=== PATIENT | male | born 1940 | race Two or more races ===

== ENCOUNTER 2016-07-12 20:50 | Inpatient (IN) | payer MEDICARE, OTHER ==
[~2016-07-12] VITALS: Ht 182.9 cm; Wt 76.9 kg
[~2016-07-12 20:50] MED LIST: /PROC25SU PR; /TAMS4CA OR; ACET50TA PO; DOCU10ELUD PO; DOXA2TAB PO; DOXY100C PO; FERR325T3 PO; FOLI1TAB2 PO; FOLI1TAB86 PO; K-PHTAB2 PO; KPHOS50TA OR; MAG-400T7 PO; MEGA40SU PO; MEGE400SUS PO; METO12TA PO; METO25TA74 PO; MOM30SS PO; NEPHTAB PO; OMEP40CA2 PO; ONDA4TAB6 PO; OXYB10TA PO; PRIL40CA PO; REME15TA PO; RENATAB5 PO; SENN8.6T76 PO; SLOW FE PO; SLOW45TA PO; TYLE325T5 PO; VITA50003 PO; ZIAC2.5T PO; [UNRECOGNIZED DRUG - CODE] PO
[2016-07-12 21:35] LABS: BASO % 0.1 % (0.0-1.0); EOS % 0.3 % (0.0-3.0); LARGE UNSTAINED CELL # 0.1 K/mm3 (0.0-0.4); LARGE UNSTAINED CELL % 0.9 % (0.0-4.0); LYMPH # 0.6 K/mm3 (1.5-4.5); LYMPH % 3.6 % (24.0-44.0); MEAN CORPUSCULAR HEMOGLOBIN 33.3 pg (27.0-33.0); MEAN CORPUSCULAR HGB CONC 33.5 g/dl (32.0-36.5); MEAN CORPUSCULAR VOLUME 99.5 fl (80.0-96.0); MONO # 0.2 K/mm3 (0.0-0.8); MONO % 1.5 % (0.0-5.0); NEUTROPHILS # 15.1 K/mm3 (1.8-7.7); NEUTROPHILS % 93.6 % (36.0-66.0); PLATELET COUNT, AUTOMATED 258 k/mm3 (150-450); RED CELL DISTRIBUTION WIDTH 14.1 % (11.5-14.5); WHITE BLOOD COUNT 16.1 K/mm3 (4.0-10.0)
[2016-07-12 21:55] LABS: CALCIUM LEVEL 6.5 MG/DL (8.8-10.2); CREATININE FOR GFR 2.19 MG/DL (0.70-1.30); GLOMERULAR FILTRATION RATE 31.1 (>42); POTASSIUM SERUM 3.7 MEQ/L (3.5-5.1)
[2016-07-12] MEDS ORDERED: POTA50TAB PO (22:39)
[2016-07-12] MEDS ORDERED: PRED5TA PO (22:43)
[2016-07-12] MEDS ORDERED: LUPR45IN IM (22:43)
[2016-07-12] MEDS ORDERED: ZYTI250T PO (22:43)
--- NOTE | 2016-07-12 23:30 | REPUSA ---
CLINICAL HISTORY: Shortness of breath. TECHNIQUE: CT chest without contrast. COMPARISON: No pertinent prior studies are available at this time. CT CHEST WITHOUT CONTRAST: Lungs: There are bilateral dependent consolidations, right lower lobe greater than left. Some of thes e consolidations demonstrate groundglass nodules There is a moderate right pleural effusion. Heart: Normal size. No significant effusion. Aorta: Normal caliber. Mediastinum and vic: No significant lymphadenopathy. Bony thorax: There is calcification of the anterior longitudinal ligament of the spine consistent wit h ankylosing spondylitis. Limited upper abdomen: Cholelithiasis. IMPRESSION: Bilateral dependent consolidations with moderate right pleural effusion. Consider aspirat ion type pneumonia.
[2016-07-13] VITALS (7 sets, daily range): BP systolic 100–141; BP diastolic 56–66
[2016-07-13 00:22] LABS: ABG BASE EXCESS -8.6 (-2.0-2.0); ABG HCO3 13.5 MEQ/L (22.0-26.0); ABG PARTIAL PRESSURE CO2 20.1 mmHg (35.0-45.0); ABG PARTIAL PRESSURE O2 73.1 mmHg (75.0-100.0); ABG STANDARD HCO3 17.5 MEQ/L (22.0-26.0); ABG TOTAL CO2 14.1 MEQ/L (23.0-31.0); ABG pH (ARTERIAL) 7.445 UNITS (7.350-7.450)
--- NOTE | 2016-07-13 00:25 | EDDOCDS ---
Nurse's Notes [facility] Name: Regan Mata Age: 76 yrs Sex: Male : 1940 Arrival Date: 07/12/2016 Time: 20:50 Bed 8 Private MD: Dalton Saez MD Diagnosis: Shortness of breath;Hypokalemia;Hypocalcemia Presentation: 07/12 20:55 Presenting complaint: EMS states: patient has had difficulty breathing past couple of nn1 days. Patient went to [facility],transferred for UTI, sacral ulcer, and hypokalema/hypocalcemia. Breathing has improved. Suicide/Homicide risk assessment- the patient denies having any suicidal and/or homicidal ideations and does not present with any other emotional, behavioral or mental health complaints. Status: Patient is not a retail service representative or dependent. Transition of care: patient was received from [facility]. 20:55 Acuity: LIANE Level 3 nn1 20:55 Method Of Arrival: Ambulance nn1 20:55 Adult Sepsis Screening: The patient does not have new or worsening altered mentation. nn1 Patient's respiratory rate is less than 22. Systolic blood pressure is greater than 100. Patient has a qSOFA score of 0- Negative Sepsis Screen. Triage Assessment: 21:15 General: Appears in no apparent distress, Behavior is appropriate for age. Pain: nn1 Location: buttocks Pain currently is 7 out of 10 on a pain scale. The patient is triaged at the bedside. See Assessment in Nurses Notes section of ED record. Neurological: Level of Consciousness is awake, alert, obeys commands, Oriented to person, place, time. Respiratory: Airway is patent Respiratory effort is even, unlabored, Respiratory pattern is regular, Breath sounds are clear Reports shortness of breath for a couple of days, denies SOB at this time. GI: Abdomen is non- distended Last BM was July 12, 2016. at 21:17. other Patient has suprapubic catheter, catheter insertion site appears infected. Dried secretions noted around site. Bowel sounds present X 4 quads. : Suprapubic catheter in place Urine is Urine is dark, odor is foul. Derm: Skin is dusky. Derm: Decubitus located on sacrum approximately > 20 cm is stage I other Nonblanchable area throughout sacrum with areas of open skin, no drainage in those areas. Historical: - Allergies: No known drug Allergies; - Home Meds: 1. ferrous sulfate 325 mg (65 mg iron) Oral cpER daily 2. folic acid 1 mg Oral tab 1 tab once daily 3. V-Apbh-Wkpguvr Oral 1 tab daily 4. Lupron Depot (6 Month) 45 mg intramuscular sykt every 6 months 5. metoprolol succinate 25 mg Tb24 1 tab once daily 6. omeprazole 40 mg Oral cpDR 1 cap once daily 7. oxybutynin chloride 10 mg Oral cp24 1 tab once daily 8. prednisone 5 mg Oral tab 1 tab 2 times per day 9. Genny-Edi 0.8 mg oral tab daily 10. Vitamin D Oral daily 11. 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 No barriers to communication noted, The patient speaks fluent Jordanian, Speaks appropriately for age. - Family history: No immediate family members are acutely ill. - : The pt / caregiver states he / she is not on anticoagulants. Home medication list is obtained from [facility] records/ . - Exposure Risk Screening:: None identified. Screenin:52 Infection Control. sew 21:01 Screening information is obtained from family members. Fall risk: At risk due to gait nn1 disturbance, uses cane for ambulation . Assistance ADL's: Requires assistance with meal preparation, this assistance is provided by family members, bathing, assistance is provided by family members, dressing, assistance is provided by family members, toileting, assistance is provided by family members, ambulation, assistance is provided by family members, housework, assistance is provided by family members, medication administration, assistance is provided by family members. Abuse/DV Screen: The patient / caregiver reports he/she is: not in a situation that causes fear, pain or injury. Nutritional screening: No deficits noted. Advance Directives: Currently, there is a health care proxy, Kirsty Mata, . home support is adequate. Assessment: 21:20 General: See triage assessment. . nn1 22:00 General: Appears in no apparent distress, comfortable, Behavior is appropriate for age, nn1 cooperative. Neurological: Level of Consciousness is awake, alert. Respiratory: Airway is patent Respiratory effort is even, unlabored, Respiratory pattern is regular, symmetrical. Derm: Skin is dusky. 23:19 General: Appears to be sleeping. Behavior is quiet. nn1 23:58 General: Patient given water, patient has no other complaints at this time. . Pain: nn1 Location: buttocks Pain currently is 7 out of 10 on a pain scale. Neurological: Level of Consciousness is awake, alert, Oriented to person, place, time. Respiratory: No deficits noted. Airway is patent Respiratory effort is even, unlabored, Respiratory pattern is regular, symmetrical. Derm: Skin is dusky. Vital Signs: 21:16 Resp 16; Temp 97.3; Pulse Ox 93% 3 lpm ; ajs 21:30 BP 116 / 55 RA; Pulse 100; Resp 20 S; Pulse Ox 94% on 2 lpm NC; af2 01 00:02 BP 127 / 58; Pulse 94; Resp 18; Temp 99.3(TE); Pulse Ox 96% on 3 lpm NC; Pain 7/10; nn1 Vitals: 07/12 20:55 Log In Time N/A - ambulance arrival. nn1 ED Course: 20:51 Patient visited by Annette Vences. sew 20:51 Patient moved to 8 sew 20:52 Dalton Saez is Private Physician. sew 20:58 Triage Initiated nn1 21:06 Dillan Williamson MD is Attending Physician. br1 21:13 Patient visited by Dillan Williamson MD. br1 21:15 Pt greeted and oriented to ED. Patient advised of names of staff involved in care, ajs location of call goel, wait times and NPO status. Accompanied by Family Member, Patient has correct armband on for positive identification. Placed in gown. Bed in low position. Call light in reach. Side rails up X2. Cleaned of incontinence. pipe cleaning machine operator on. Pulse ox on. NIBP on. 21:16 Patient visited by Mercedes Johnson. ajs 21:30 Troponin Sent. af2 21:30 BMP Sent. af2 21:30 CBC with Diff Sent. af2 21:31 Patient visited by Jeanine Richardson RN. af2 21:31 Inserted saline lock: 20 gauge in right antecubital area and blood collected. The af2 patient tolerated the procedure well. 21:43 -Influenza A&B Rapid Antigen - Nose Sent. nn1 21:43 -Blood Culture Sent. nn1 21:50 Mayra Aragon is Hospitalizing Provider. br1 22:08 Patient visited by Julienne Clark, Judo Teacher. jlm 22:08 EKG done. (by ED staff). Reviewed by Dillan Williamson MD. jlm 22:28 Barbi Rodrigues liquid yeast supervisor. ys2 22:47 [facility] Payment Agreement was scanned into [employer] and attached to record. jpb 23:32 CT Chest Without Contrast Returned. EDMS 07/13 00:01 The patient / caregiver is instructed regarding the plan of care and ED course. nn1 00:01 No procedures done that require assistance. nn1 Order Results: Lab Order: CBC with Diff; SPEC'M 07/12/16 21:27 Test: WHITE BLOOD COUNT; Value: 16.1; Range: 4.0-10.0; Abnormal: Above high normal; Units: K/mm3; Status: F Test: RED BLOOD COUNT; Value: 3.51; Range: 4.30-6.10; Abnormal: Below low normal; Units: M/mm3; Status: F Test: HEMOGLOBIN; Value: 11.7; Range: 14.0-18.0; Abnormal: Below low normal; Units: g/dl; Status: F Test: HEMATOCRIT; Value: 34.9; Range: 42.0-52.0; Abnormal: Below low normal; Units: %; Status: F Test: MEAN CORPUSCULAR VOLUME; Value: 99.5; Range: 80.0-96.0; Abnormal: Above high normal; Units: fl; Status: F Test: MEAN CORPUSCULAR HEMOGLOBIN; Value: 33.3; Range: 27.0-33.0; Abnormal: Above high normal; Units: pg; Status: F Test: MEAN CORPUSCULAR HGB CONC; Value: 33.5; Range: 32.0-36.5; Units: g/dl; Status: F Test: RED CELL DISTRIBUTION WIDTH; Value: 14.1; Range: 11.5-14.5; Units: %; Status: F Test: PLATELET COUNT, AUTOMATED; Value: 258; Range: 150-450; Units: k/mm3; Status: F Test: NEUTROPHILS %; Value: 93.6; Range: 36.0-66.0; Abnormal: Above high normal; Units: %; Status: F Test: LYMPH %; Value: 3.6; Range: 24.0-44.0; Abnormal: Below low normal; Units: %; Status: F Test: MONO %; Value: 1.5; Range: 0.0-5.0; Units: %; Status: F Test: EOS %; Value: 0.3; Range: 0.0-3.0; Units: %; Status: F Test: BASO %; Value: 0.1; Range: 0.0-1.0; Units: %; Status: F Test: LARGE UNSTAINED CELL %; Value: 0.9; Range: 0.0-4.0; Units: %; Status: F Test: NEUTROPHILS #; Value: 15.1; Range: 1.8-7.7; Abnormal: Above high normal; Units: K/mm3; Status: F Test: LYMPH #; Value: 0.6; Range: 1.5-4.5; Abnormal: Below low normal; Units: K/mm3; Status: F Test: MONO #; Value: 0.2; Range: 0.0-0.8; Units: K/mm3; Status: F Test: EOS #; Value: 0.0; Range: 0.0-0.50; Units: K/mm3; Status: F Test: BASO #; Value: 0.0; Range: 0.0-0.2; Units: K/mm3; Status: F Test: LARGE UNSTAINED CELL #; Value: 0.1; Range: 0.0-0.4; Units: K/mm3; Status: F Lab Order: [facility]; SPEC'M 07/12/16 21:27 Test: GLUCOSE, FASTING; Value: 91; Range: 83-110; Units: MG/DL; Status: F Test: BLOOD UREA NITROGEN; Value: 36; Range: 7-18; Abnormal: Above high normal; Units: MG/DL; Status: F Test: CREATININE FOR GFR; Value: 2.19; Range: 0.70-1.30; Abnormal: Above high normal; Units: MG/DL; Status: F Test: GLOMERULAR FILTRATION RATE; Value: 31.1; Range: >42; Abnormal: Below low normal; Status: F Test: SODIUM LEVEL; Value: 145; Range: 136-145; Units: MEQ/L; Status: F Test: POTASSIUM SERUM; Value: 3.7; Range: 3.5-5.1; Units: MEQ/L; Status: F Test: CHLORIDE LEVEL; Value: 114; Range: 98-107; Abnormal: Above high normal; Units: MEQ/L; Status: F Test: CARBON DIOXIDE LEVEL; Value: 16; Range: 21-32; Abnormal: Below low normal; Units: MEQ/L; Status: F Test: ANION GAP; Value: 15; Range: 8-16; Units: MEQ/L; Status: F Test: CALCIUM LEVEL; Value: 6.5; Range: 8.8-10.2; Abnormal: Below low normal; Units: MG/DL; Status: F Test Note: ; Units are mL/min/1.73 m2 Chronic Kidney Disease Staging per NKF: Stage I & II GFR >=60 Normal to Mildly Decreased Stage III GFR 30-59 Moderately Decreased Stage IV GFR 15-29 Severely Decreased Stage V GFR <15 Very Little GFR Left ESRD GFR <15 on CASTING ROOM OPERATOR Lab Order: Troponin; SPEC'M 07/12/16 21:27 Test: TROPONIN I; Value: 0.12; Range: < 0.10; Abnormal: Above high normal; Units: NG/ML; Status: F Test Note: ; Troponin I Reference Interval for Siemens NGRAIN LOCI: 99th Percentile= 0.00-0.045 ng/ml Risk Stratification: <= 0.10 ng/ml Decreased Risk for Adverse Clinical Events. 0.10-1.50 ng/ml Increased Risk for Adverse Clinical Events. Evaluation of additional criterion and/or repeat testing in 2-6 hours is suggested to rule out myocardial damage. >= 1.50 ng/ml Indicative of Myocardial Injury. Lab Order: -Influenza A&B Rapid Antigen - Nose; SPEC'M 07/12/16 21:39 Test: INFLUENZA A RAPID SCR by ICA; Value: INFLUENZA A RESULTS NEGATIVE; Status: F Test: INFLUENZA A RAPID SCR by ICA; Value: Comments:; Status: F Test: INFLUENZA B RAPID SCR by ICA; Value: INFLUENZA B RESULTS NEGATIVE; Status: F Test Note: ; The Influenza test is a direct rapid immunoassay for the qualitative detection of Influenza viral antigen. Cell culture (Viral Culture) testing should be considered to confirm NEGATIVE results and to assist in detecting other viruses that can provide similar clinical symptoms. Please contact the lab within 24 hours ([phone]) if confirmatory testing is desired. Lab Order: BNP; SPEC'M 07/12/16 21:27 Test: BRAIN NATRIURETIC PEPTIDE; Value: 201; Range: <100; Abnormal: Above high normal; Units: PG/ML; Status: F Lab Order: C REACTIVE PROTEIN QUANTITATIV; SPEC'M 07/12/16 21:27 Test: C REACTIVE PROTEIN QUANTITATIV; Value: 28.90; Range: 0.00-0.30; Abnormal: Above high normal; Units: MG/DL; Status: F Radiology Order: CT Chest Without Contrast Test: CT Chest Without Contrast REASON FOR EXAMINATION: Shortness of Breath; ; CLINICAL HISTORY: Shortness of breath.; TECHNIQUE: CT chest without contrast.; ; COMPARISON: No pertinent prior studies are available at this time.; ; CT CHEST WITHOUT CONTRAST:; Lungs: There are bilateral dependent consolidations, right lower lobe greater than left. Some of thes; e consolidations demonstrate groundglass nodules There is a moderate right pleural effusion.; Heart: Normal size. No significant effusion.; Aorta: Normal caliber.; Mediastinum and vic: No significant lymphadenopathy.; Bony thorax: There is calcification of the anterior longitudinal ligament of the spine consistent wit; h ankylosing spondylitis.; Limited upper abdomen: Cholelithiasis.; IMPRESSION: Bilateral dependent consolidations with moderate right pleural effusion. Consider aspirat; ion type pneumonia.; ; Outcome: 07/12 21:50 Decision to Hospitalize by Provider. br1 07/13 00:00 Discharge Assessment: Patient awake, alert and oriented x 3. No cognitive and/or nn1 functional deficits noted. Patient verbalized understanding of disposition instructions. patient administered narcotics - no. The following High Risk Discharge criteria are identified: None. Admitted to PCU accompanied by nurse, accompanied by tech, family with patient, via stretcher, with oxygen, on monitor, with chart. Condition: stable. No special radiology studies were completed. Property :Personal belongings accompany Pt. 00:01 Admission hand-off: Report Faxed Fax receipt verified by JANEEN Guillory . nn1 00:24 Patient left the ED. nn1 Signatures: Dispatcher [employer] EDMS Dillan Williamson MD MD br1 Mercedes Johnson Joel jpb Wallace, Julienne Morel, Judo Teacher Unit Jeanine Becker RN RN af2 Mana Bone RN RN nn1 Barbi Rodrigues ys2 MTDD
--- NOTE | 2016-07-13 00:25 | EDDOCDS ---
Physician Documentation [facility] Name: Regan Mata Age: 76 yrs Sex: Male : 1940 Arrival Date: 07/12/2016 Time: 20:50 Bed 8 Private MD: Dalton Saez MD Disposition: 07/12/16 21:50 Hospitalization ordered by Mayra Aragon for Inpatient Admission. Preliminary diagnosis are Shortness of breath, Hypokalemia, Hypocalcemia. - Bed requested for PCU. - Status is Inpatient Admission. nn1 - Condition is Stable. - Problem is new. - Symptoms are unchanged. Historical: - Allergies: No known drug Allergies; - Home Meds: 1. ferrous sulfate 325 mg (65 mg iron) Oral cpER daily 2. folic acid 1 mg Oral tab 1 tab once daily 3. W-Tfnm-Xaajgje Oral 1 tab daily 4. Lupron Depot (6 Month) 45 mg intramuscular sykt every 6 months 5. metoprolol succinate 25 mg Tb24 1 tab once daily 6. omeprazole 40 mg Oral cpDR 1 cap once daily 7. oxybutynin chloride 10 mg Oral cp24 1 tab once daily 8. prednisone 5 mg Oral tab 1 tab 2 times per day 9. Genny-Edi 0.8 mg oral tab daily 10. Vitamin D Oral daily 11. 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 No barriers to communication noted, The patient speaks fluent Bahraini, Speaks appropriately for age. - Family history: No immediate family members are acutely ill. - : The pt / caregiver states he / she is not on anticoagulants. Home medication list is obtained from [facility] records/ . - Exposure Risk Screening:: None identified. Vital Signs: 07/12 21:16 Resp 16; Temp 97.3; Pulse Ox 93% 3 lpm ; ajs 21:30 BP 116 / 55 RA; Pulse 100; Resp 20 S; Pulse Ox 94% on 2 lpm NC; af2 07/13 00:02 BP 127 / 58; Pulse 94; Resp 18; Temp 99.3(TE); Pulse Ox 96% on 3 lpm NC; Pain 7/10; nn1 MDM: 07/12 21:14 IV Saline Lock ordered. br1 21:14 Crankshaft Grinder/Pulse Ox/q 30 min VS ordered. br1 21:15 CBC with Diff Ordered. EDMS 21:15 BMP Ordered. EDMS 21:21 Oxygen at 2L/min via NC ordered. br1 21:21 Troponin Ordered. EDMS 21:21 ECG WITH READING ER PHYS+CARDIAG ordered. EDMS 21:25 Vital Signs ordered. br1 21:25 BED REQUEST+ADM ordered. EDMS 21:26 -Blood Culture (Adults Only), peripheral from different site, or from device/port/PICC br1 etc. if present ordered. 21:27 -Blood Culture (Adults Only), peripheral from different site, or from device/port/PICC sew etc. if present complete. 21:27 -Blood Culture Ordered. EDMS 21:28 CT Chest Without Contrast Ordered. EDMS 21:29 BLOOD CULTURES Ordered. EDMS 21:32 -Influenza A&B Rapid Antigen - Nose Ordered. EDMS 21:38 BNP Ordered. EDMS 22:39 CBC with Diff Reviewed. br1 22:39 BMP Reviewed. br1 22:39 Troponin Reviewed. br1 22:39 BNP Reviewed. br1 22:39 -Influenza A&B Rapid Antigen - Nose Reviewed. br1 22:44 Admission / Observation Status ordered. EDMS 22:44 2 GRAM SODIUM DIET ordered. EDMS 22:45 COMPLETE BLOOD COUNT Ordered. EDMS 22:45 BASIC METABOLIC PROFILE Ordered. EDMS 22:45 SPUTUM CULTURE AND GRAM STAIN Ordered. EDMS 22:46 Financial registration complete. jpb 22:47 [facility] was scanned into [employer] and attached to record. jpb 22:59 LACTIC ACID LEVEL, LACTATE Ordered. EDMS 22:59 PSA FREE (INCLUDES TOTAL) Ordered. EDMS 23:01 URINALYSIS Ordered. EDMS 23:01 URINE CULTURE Ordered. EDMS 23:18 ARTERIAL BLOOD GAS Ordered. EDMS 23:29 CARDIAC MARKER PANEL Ordered. EDMS 23:29 C REACTIVE PROTEIN QUANTITATIV Ordered. EDMS 07/13 00:07 MRSA SCREEN Ordered. EDMS Signatures: Dispatcher [employer] EDMS Jackelin GAMINO, JANEEN Zhang RN Dillan Quiñonez MD MD br1 BanazekChele Sarah sew Nunez, Nikkole,RN RN nn1 The chart was reviewed and I authenticate all verbal orders and agree with the evaluation and treatment provided.Corrections: (The following items were deleted from the chart) 07/12 21:21 21:20 Oxygen 2L via NC, titrate to maintain PO >95% ordered. br1 br1 23:27 22:45 CARDIAC MARKER PANEL ordered. EDMS EDMS 23:29 22:45 C REACTIVE PROTEIN QUANTITATIV ordered. EDMS EDMS 23:29 22:59 C REACTIVE PROTEIN QUANTITATIV ordered. EDMS EDMS Attachments: 22:47 [facility] Payment Agreement gunjan MTDD
--- NOTE | 2016-07-13 00:32 | PHACANCOPD ---
PHARMACY VANCOMYCIN DOSING Pt Demographics Demographics Patient Age:76 , Weight: , Gender: male Adjusted Body Weight Date: 07/13/16, Adjusted Body Weight: [78.7] Kg Events Past 24 Hours Events Past 24 Hours: NO: Change in CrCl, Dialysis, Diuretic Therapy, Elevation in WBC, Fever, Other, Pending Diagnostics, Pending Procedures Vancomycin Vancomycin Target Ranges: 15-20 mcg/ml Vancomycin Load Y/N: Yes Load Dose Date Time Vancomycin Load Dose: 1500MG Date: 07-13 Time: 0200 Vancomycin Dose Date: 07/13/16. Current Vancomycin Dose: [1000MG Q24H] Intermittent Dosing?: No Labs Labs Item Value Date Time White Blood Count 16.1 K/mm3 H 07/12/162126 Creatinine 2.19 MG/DL H 07/12/162126 Blood Urea Nitrogen 36 MG/DL H 07/12/162126 Micro Microbiology 07/12/16 Blood Culture, Received Pending 07/12/16 Influenza Virus Type A Antigen - Final, Complete 07/12/16 Influenza Virus Type B Antigen - Final, Complete Creatinine Clearance Date:07/13/16. Creatinine Clearance: [30.5]. Pending Labs Trough - @0100 Assessment and Plan Maintaining Current Dose?: Yes Reason for dose change: No Dose Change Pharmacist Note Pharmacist Note Date: 07/13/16. Pharmacist note:Dosed at 100mg q24h with a trough scheduled for 1 @0100. Will continue to monitor and make adjustments as needed. BHARGAV CORTES [facility] Jul 13, 2016 00:32
[2016-07-13] MEDS: NS 1,000 ML IV SCH ×3 (00:49→21:27)
[2016-07-13] MEDS ORDERED: VANCOMYCIN HCL 500 MG in D5W MINI-BAG PLUS 100 ML IV ONE (01:00)
[2016-07-13] MEDS: VANCOMYCIN HCL 1,000 MG, VIAL MATE ADAPTER 1 EACH in D5W 250 ML IV SCH (01:59)
[2016-07-13] MEDS: oxyBUTYnin *DITROPAN XL* 5 MG TABCR PO SCH ×2 (01:59→21:26)
--- NOTE | 2016-07-13 02:42 | HPE ---
DATE OF ADMISSION: 07/12/2016 HISTORY OF PRESENT ILLNESS: The patient is a 76-year-old male with past medical history significant for metastatic prostate cancer, gastroesophageal reflux disease (GERD), and hypertension, who was transferred from [facility] to [facility] on 07/12/2016, for respiratory distress. Patient stated that he started having worsening shortness of breath over the past few days. Patient initially went to [facility] for examination. Patient was found to be hypotensive, and patient was found to have elevated white count. Patient was given IV fluids and IV antibiotics, and patient requested transfer to [facility] for upper level of care. For the past few days, the patient started having worsening shortness of breath, started having fever and chills, and also started having a cough. However, he stated the sputum is more like a milky type of color. Patient also complained of worsening of the pain in the buttocks where he has frequent decubitus ulcers. He denies any other associated symptoms. Patient did have a history of prostate cancer with metastasis previously. Patient had radiation therapy in the past. For the past 3-4 months, the patient started seeing Dr. Garvin and patient has been taking Zytiga; however, patient's prostate-specific antigen (PSA) continued to rise. Patient is scheduled to have a positron emission tomography (PET) scan done again on 07/26/2016. Previously, patient was told he has metastasis to the left rib and the right femur. He was told that the Zytiga is not working as well as expected. The plan may be to start the patient on conventional prostate cancer therapy. When the patient arrived to [facility], the patient received IV fluids and also electrolytes supplements and also IV antibiotics. When patient arrived to our emergency room, patient had a blood pressure of 116/55, pulse was 100, respiratory rate 20, temperature 97.3. Patient's oxygen saturation was 94% with two liters nasal cannula. Patient had worsening respiratory distress in [facility] where he required increased nasal cannula up to five liters to maintain oxygen saturation. Patient was hospitalized in [facility] in September 2015. During that admission, the patient had an episode of atrial fibrillation and converted back after metoprolol. ALLERGIES: No known drug allergies. HOME MEDICATIONS: - Zytiga 1000 mg by mouth daily - vitamin D 50,000 units by mouth weekly - ferrous sulfate 325 mg by mouth daily - folic acid 1 mg by mouth daily - Lupron 45 mg IM every six months, last dose was in May 2016 - metoprolol succinate 25 mg by mouth at bedtime - omeprazole 40 mg by mouth at bedtime - oxybutynin 10 mg by mouth at bedtime - potassium phosphate 500 mg by mouth daily - prednisone 5 mg by mouth twice a day - multivitamin one tab by mouth daily PAST MEDICAL HISTORY: 1. Metastatic prostate cancer with bone metastasis. 2. Gastroesophageal reflux disease. 3. Hypertension. 4. History of suprapubic catheter use. SOCIAL HISTORY: Denies alcohol use. Denies smoking. Denies recreational drug use. Patient has DO NOT RESUSCITATE (DNR)/DO NOT INTUBATE (DNI). Medical orders for life-sustaining treatment (MOLST) form is updated. REVIEW OF SYSTEMS: GENERAL: Positive fever; no chills. HEENT: No vision changes. No auditory changes. CARDIOVASCULAR: No chest pain. No palpitations. RESPIRATORY: Positive worsening of shortness of breath with fever and cough for the past three days. No wheezes. GI: No nausea, no vomiting, no abdominal pain. MUSCULOSKELETAL: Positive chronic recurrent ulcers near the buttocks. Patient currently has been having worsening decubitus ulcers for the past three months. NEUROLOGICAL: Denies any neurological changes. PHYSICAL EXAMINATION: VITAL SIGNS: Blood pressure is 116/55, pulse is 100, respirations 20, temperature is 97.3, oxygen saturation 94% on two liters nasal cannula. GENERAL: Fatigue. No acute distress, alert, and oriented times three. HEENT: Normocephalic, atraumatic. Extraocular motors are grossly intact. CARDIOVASCULAR: Distant heart sounds, positive S1, S2, regular rate. LUNGS: Positive crackles bilaterally in the lower base. No wheezes appreciated. ABDOMEN: Soft, nontender, and nondistended. Bowel sounds are present. No rebound, no guarding. DERMATOLOGIC: Positive stage 2 decubitus pressure ulcers located between the gluteal fold with diameter of approximately around 0.5 cm. EXTREMITIES: No edema, no cyanosis, no calf tenderness. NEUROLOGICAL: Muscle strength 4-5 out of 5 throughout. Sensation to fine touch grossly intact. LABORATORY DATA: WBC 16.1, hemoglobin 11.7, hematocrit is 24.9, platelet count is 256. Sodium is 145, potassium 3.7, chloride is 114, carbon dioxide 16, BUN 36, creatinine 2.19, GFR is 31.1, fasting glucose 91, calcium is 6.5, troponin I is 0.12, BNP is 201. ASSESSMENT AND PLAN: 1. Acute respiratory distress. Patient will be admitted to the progressive care unit (PCU) for tonight. Patient was hypotensive in [facility] with tachycardia. Patient has an elevated white count. At one point, patient required almost five liters nasal cannula in [facility]. Patient also has a history of atrial fibrillation in September when patient was hospitalized. Therefore, we will put the patient on cardiac telemetry at least for tonight. If the patient continues to improve, we will transfer the patient to the medical-surgical floor. CT of the chest is pending. We will followup with sputum cultures. We will start empiric antibiotics of vancomycin and Zosyn. Patient is immunocompromised due to chemotherapy. 2. History of metastatic prostate cancer with bone metastasis. Per patient, he has bone metastasis to the left rib and right femur. Patient has been taking Zytiga for the past 3-4 months; however, the patient's PSA continued to rise. Patient is supposed to have a scheduled positron emission tomography (PET) scan on 07/26/2016. Patient was told that there is a possibility he may be restarted on the traditional prostate cancer therapy. 3. Leukocytosis. Possibly due to lung source; however, we will complete a workup to include lactic acid, blood cultures, and follow with CT imaging, urinalysis (UA), and urine culture. Patient will be on empiric antibiotics. 4. Acute kidney injury. Patient had a creatinine in 1.25 on September 2015. Patient's creatinine is 2.19. Patient's glomerular filtration rate (GFR) was approximately 60 in September 2015; currently GFR is 31. Patient will be on aggressive IV fluids. We should be cautious as patient has elevated BNP of 201. Currently, patient does not show any signs of fluid overload. 5. Gastroesophageal reflux disease. Continue home medications. 6. History of atrial fibrillation, in September 2015. Patient is currently on metoprolol. It was determined that the last atrial fibrillation was induced by physical stress. 7. Hypertension. Patient is on metoprolol. 8. Deep vein thrombosis (DVT) prophylaxis. Patient will be on Lovenox.
[2016-07-13] MEDS: MEROPENEM INJ 2 GM in NS 100 ML IV SCH ×2 (03:41→16:45)
[2016-07-13 06:06] LABS: MEAN CORPUSCULAR HEMOGLOBIN 33.1 pg (27.0-33.0); MEAN CORPUSCULAR HGB CONC 33.1 g/dl (32.0-36.5); MEAN CORPUSCULAR VOLUME 99.9 fl (80.0-96.0); WHITE BLOOD COUNT 13.9 K/mm3 (4.0-10.0)
[2016-07-13 06:26] LABS: BLOOD UREA NITROGEN 36 MG/DL (7-18); CALCIUM LEVEL 6.5 MG/DL (8.8-10.2); CHLORIDE LEVEL 117 MEQ/L (98-107); GLUCOSE, FASTING 89 MG/DL (83-110); MAGNESIUM LEVEL 1.9 MG/DL (1.8-2.4); POTASSIUM SERUM 3.3 MEQ/L (3.5-5.1); SODIUM LEVEL 146 MEQ/L (136-145)
[2016-07-13] MEDS ORDERED: predniSONE 5 MG TAB PO SCH (09:00)
[2016-07-13] MEDS: ENOXAPARIN 30 MG/0.3 ML SYR (J1650) SC SCH (09:35)
[2016-07-13 10:35] LABS: ANION GAP 14 MEQ/L (8-16); CARBON DIOXIDE LEVEL 15 MEQ/L (21-32)
--- NOTE | 2016-07-13 11:32 | ECGEPIP ---
Stationary ECG Study [facility] - ED Test Date: 2016-07-12 Pat Name: CINDY RODRIGUEZ Department: Room: [place] [address] Gender: M Pipe Installer: alhaji : 1940 Requested By: KULWANT Jimenez Order Number: [id number] Reading MD: Annette Holland Measurements Intervals [place] Rate: 96 P: 13 AR: 139 QRS: -31 QRSD: 101 T: 3 QT: 386 QTc: 490 Interpretive Statements SINUS RHYTHM WITH OCCASIONAL VENTRICULAR PREMATURE COMPLEXES INCOMPLETE RIGHT BUNDLE BRANCH BLOCK INFERIOR MYOCARDIAL INFARCTION, PROBABLY OLD BASELINE ARTIFACT LMITS INTERPRETATION INCREASED RATE/ECTOPY 09/13/15 Electronically Signed On 07-13-2016 11:32:31 EST by Annette Holland
[2016-07-13] MEDS: FERROUS SULFATE 325MG TAB PO SCH (12:08)
[2016-07-13] MEDS: FOLIC ACID 1 MG TAB PO SCH (12:08)
[2016-07-13] MEDS ORDERED: METOPROLOL 5 MG/5 ML VIAL As Ordered ONE (14:28)
[2016-07-13] MEDS ORDERED: POTASSIUM CHLORIDE 10 MEQ SR TABLET As Ordered ONE (14:28)
[2016-07-13] MEDS: K-PHOS ORIGINAL (POT.ACID PHOSPHATE) 500MG TAB PO SCH (14:34)
[2016-07-13] MEDS: METOPROLOL 5 MG/5 ML VIAL IV SCH ×3 (14:35→14:58)
[2016-07-13] MEDS ORDERED: POTASSIUM CHLORIDE 10 MEQ SR TABLET PO ONE (14:45)
[2016-07-13] MEDS ORDERED: SODIUM CHLORIDE 0.9% 1000 ML IV ONE (14:45)
[2016-07-13] MEDS: METOPROLOL TART 25 MG TABLET PO SCH (17:04)
[2016-07-13 17:12] LABS: CALCIUM LEVEL 6.5 MG/DL (8.8-10.2); CREATININE FOR GFR 1.87 MG/DL (0.70-1.30); GLOMERULAR FILTRATION RATE 37.4 (>42); POTASSIUM SERUM 3.2 MEQ/L (3.5-5.1)
[2016-07-13] MEDS ORDERED: SLF 3 ML SYR IV PRN (17:45)
[2016-07-13] MEDS ORDERED: METOPROLOL SUCC *XL* 25MG TAB (TopROL *XL*) PO SCH (18:00)
[2016-07-13] MEDS: OMEPRAZOLE 20 MG CAP PO SCH (18:03)
--- NOTE | 2016-07-13 18:38 | IPN ---
DATE: 07/13/2016 Mr. Mata feels slightly better this morning. He has less shortness of breath. He does have right sided chest discomfort, which is pleuritic. Temperature 97.1, pulse 84, respiratory rate 20, blood pressure 135/63, 98% on 2 liters. Positive fluid balance of 530. One bowel movement today. He is awake, alert. Seems somewhat sad. Speaking in complete sentences. No accessory muscle use. HEART: Regular rate and rhythm. Tachycardic. ABDOMEN: Soft, doughy, nontender. EXTREMITIES: No lower extremity edema. LABORATORY DATA: White count 13.9, hemoglobin 9.7, platelets 226. Sodium 146, potassium 3.3, chloride 117, carbon dioxide 15, BUN 36, glucose 89, lactic acid 1.4. ASSESSMENT: This is a 76-year-old with suspected aspiration pneumonia. PLAN: 1. The patient has aspiration pneumonia and is continued on broad spectrum antibiotics. He does have a right sided pleural effusion. Apparently, he has had a CT scan done recently in [place]. Hopefully we can get this compared by radiology. 2. The patient has a history of metastatic prostate cancer with bony metastases. He is planned for a repeat PET scan. Oncologist is Dr. Thelma Garvin. 3. The patient has acute kidney injury, which is somewhat improved from yesterday. Baseline renal function is likely 1.7. Renal function is still worse at the moment. 4. The patient has atrial fibrillation. Rate is increased this afternoon. Beta rosalba will be given this afternoon in the form of IV. Oral metoprolol will be given as well. The patient is also given IV fluid. 5. The patient has expressed the wish to be DO NOT RESUSCITATE/DO NOT INTUBATE. Has discussed that with Dr. Rodrigues last night. DO NOT RESUSCITATE order is entered in the computer.
[2016-07-13] MEDS ORDERED: oxyBUTYnin *DITROPAN XL* 5 MG TABCR PO SCH (21:00)
[2016-07-13] MEDS: SLF 3 ML SYR IV SCH (21:26)
[2016-07-14] VITALS (7 sets, daily range): BP systolic 115–132; BP diastolic 52–62
[2016-07-14] MEDS: VANCOMYCIN HCL 1,000 MG, VIAL MATE ADAPTER 1 EACH in D5W 250 ML IV SCH (02:00)
[2016-07-14] MEDS: MEROPENEM INJ 2 GM in NS 100 ML IV SCH ×2 (05:04→15:58)
[2016-07-14 05:32] LABS: MEAN CORPUSCULAR HEMOGLOBIN 33.3 pg (27.0-33.0); MEAN CORPUSCULAR HGB CONC 33.7 g/dl (32.0-36.5); MEAN CORPUSCULAR VOLUME 98.9 fl (80.0-96.0); RED CELL DISTRIBUTION WIDTH 15.1 % (11.5-14.5); WHITE BLOOD COUNT 11.9 K/mm3 (4.0-10.0)
[2016-07-14] MEDS: METOPROLOL TART 25 MG TABLET PO SCH ×4 (06:00→18:17)
[2016-07-14 06:01] LABS: CALCIUM LEVEL 6.2 MG/DL (8.8-10.2); CREATININE FOR GFR 1.8 MG/DL (0.70-1.30); POTASSIUM SERUM 3.1 MEQ/L (3.5-5.1)
[2016-07-14] MEDS: SLF 3 ML SYR IV SCH ×3 (06:18→21:06)
[2016-07-14] MEDS ORDERED: POTASSIUM CHLORIDE 10 MEQ SR TABLET PO ONE (08:45)
[2016-07-14] MEDS: ENOXAPARIN 30 MG/0.3 ML SYR (J1650) SC SCH (09:02)
[2016-07-14] MEDS: D5W 1,000 ML IV SCH (09:02)
[2016-07-14] MEDS ORDERED: POTASSIUM CHLORIDE 10% LIQ 20 MEQ/15 ML UDC PO ONE (09:30)
[2016-07-14] MEDS ORDERED: VARIBAR PUDDING 40% w/v 230ML TUBE As Ordered ONE (12:06)
[2016-07-14] MEDS: FERROUS SULFATE 325MG TAB PO SCH (13:13)
[2016-07-14] MEDS: FOLIC ACID 1 MG TAB PO SCH (13:13)
[2016-07-14] MEDS: K-PHOS ORIGINAL (POT.ACID PHOSPHATE) 500MG TAB PO SCH (13:14)
[2016-07-14 14:12] LABS: PSA TOTAL 69.6 ng/mL (0.0-4.0)
--- NOTE | 2016-07-14 14:31 | REP ---
COOKIE SWALLOW: The procedure was performed under the direct supervision of Dr. Dillard. The procedure was performed with Sana Herron from speech pathology present. 5 mL aliquots of nectar pudding, solid and thin consistency of barium was administered. There is no evidence of penetration or aspiration. A detailed report of this examination will be provided by speech pathology. 1 minute and 9 seconds of fluoroscopy time was utilized for this procedure. Reviewed by ORIANA Watson 07/14/2016 04:14 PEdited and Signed by Heri Dillard MD 07/14/2016 05:22 P
[2016-07-14] MEDS: OMEPRAZOLE 20 MG CAP PO SCH (18:17)
[2016-07-14] MEDS: oxyBUTYnin *DITROPAN XL* 5 MG TABCR PO SCH (21:06)
[2016-07-15] MEDS ORDERED: NYSTATIN 100,000 UNITS/GM TOPICAL PWD 15 GM TOP PRN (00:15)
[2016-07-15] MEDS: METOPROLOL TART 25 MG TABLET PO SCH ×4 (00:36→17:49)
[2016-07-15] MEDS: D5W 1,000 ML IV SCH ×2 (00:36→17:50)
--- NOTE | 2016-07-15 01:26 | EDDOCDS ---
Physician Documentation [facility] Name: Regan Mata Age: 76 yrs Sex: Male : 1940 Arrival Date: 07/12/2016 Time: 20:50 Bed 8 Private MD: Dalton Saez MD Disposition: 07/12/16 21:50 Hospitalization ordered by Mayra Aragon for Inpatient Admission. Preliminary diagnosis are Shortness of breath, Hypokalemia, Hypocalcemia. - Bed requested for PCU. - Status is Inpatient Admission. nn1 - Condition is Stable. - Problem is new. - Symptoms are unchanged. Historical: - Allergies: No known drug Allergies; - Home Meds: 1. ferrous sulfate 325 mg (65 mg iron) Oral cpER daily 2. folic acid 1 mg Oral tab 1 tab once daily 3. S-Mmci-Ohvxovw Oral 1 tab daily 4. Lupron Depot (6 Month) 45 mg intramuscular sykt every 6 months 5. metoprolol succinate 25 mg Tb24 1 tab once daily 6. omeprazole 40 mg Oral cpDR 1 cap once daily 7. oxybutynin chloride 10 mg Oral cp24 1 tab once daily 8. prednisone 5 mg Oral tab 1 tab 2 times per day 9. Genny-Edi 0.8 mg oral tab daily 10. Vitamin D Oral daily 11. 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 No barriers to communication noted, The patient speaks fluent [place], Speaks appropriately for age. - Family history: No immediate family members are acutely ill. - : The pt / caregiver states he / she is not on anticoagulants. Home medication list is obtained from [place] records/ . - Exposure Risk Screening:: None identified. Vital Signs: 07/12 21:16 Resp 16; Temp 97.3; Pulse Ox 93% 3 lpm ; ajs 21:30 BP 116 / 55 RA; Pulse 100; Resp 20 S; Pulse Ox 94% on 2 lpm NC; af2 07/13 00:02 BP 127 / 58; Pulse 94; Resp 18; Temp 99.3(TE); Pulse Ox 96% on 3 lpm NC; Pain 7/10; nn1 MDM: 07/12 21:14 IV Saline Lock ordered. br1 21:14 [employer] Counter Manager/Pulse Ox/q 30 min VS ordered. br1 21:15 CBC with Diff Ordered. EDMS 21:15 BMP Ordered. EDMS 21:21 Oxygen at 2L/min via NC ordered. br1 21:21 Troponin Ordered. EDMS 21:21 ECG WITH READING ER PHYS+CARDIAG ordered. EDMS 21:25 Vital Signs ordered. br1 21:25 BED REQUEST+ADM ordered. EDMS 21:26 -Blood Culture (Adults Only), peripheral from different site, or from device/port/PICC br1 etc. if present ordered. 21:27 -Blood Culture (Adults Only), peripheral from different site, or from device/port/PICC sew etc. if present complete. 21:27 -Blood Culture Ordered. EDMS 21:28 CT Chest Without Contrast Ordered. EDMS 21:29 BLOOD CULTURES Ordered. EDMS 21:32 -Influenza A&B Rapid Antigen - Nose Ordered. EDMS 21:38 BNP Ordered. EDMS 22:39 CBC with Diff Reviewed. br1 22:39 BMP Reviewed. br1 22:39 Troponin Reviewed. br1 22:39 BNP Reviewed. br1 22:39 -Influenza A&B Rapid Antigen - Nose Reviewed. br1 22:44 Admission / Observation Status ordered. EDMS 22:44 2 GRAM SODIUM DIET ordered. EDMS 22:45 COMPLETE BLOOD COUNT Ordered. EDMS 22:45 BASIC METABOLIC PROFILE Ordered. EDMS 22:45 SPUTUM CULTURE AND GRAM STAIN Ordered. EDMS 22:46 Financial registration complete. jpb 22:47 [facility] [place] was scanned into [employer] and attached to record. jpb 22:59 LACTIC ACID LEVEL, LACTATE Ordered. EDMS 22:59 PSA FREE (INCLUDES TOTAL) Ordered. EDMS 23:01 URINALYSIS Ordered. EDMS 23:01 URINE CULTURE Ordered. EDMS 23:18 ARTERIAL BLOOD GAS Ordered. EDMS 23:29 CARDIAC MARKER PANEL Ordered. EDMS 23:29 C REACTIVE PROTEIN QUANTITATIV Ordered. EDMS 07/13 00:07 MRSA SCREEN Ordered. EDMS 07/14 08:15 T-Sheet-- Draft Copy was scanned into [employer] and attached to record. gb Signatures: Dispatcher [employer] EDVA QuesenLeatha Gramajo, RN RN daq Eva Garrido, Reg Reg gb Dillan Williamson MD MD br1 Chele Edouard Sarah sew Nunez, Nikkole,RN RN nn1 The chart was reviewed and I authenticate all verbal orders and agree with the evaluation and treatment provided.Corrections: (The following items were deleted from the chart) 07/12 21:21 21:20 Oxygen 2L via NC, titrate to maintain PO >95% ordered. br1 br1 23:27 22:45 CARDIAC MARKER PANEL ordered. EDMS EDMS 23:29 22:45 C REACTIVE PROTEIN QUANTITATIV ordered. EDMS EDMS 23:29 22:59 C REACTIVE PROTEIN QUANTITATIV ordered. EDMS EDMS Attachments: 22:47 [facility] Payment Agreement jpb 07/14 08:15 T-Sheet-- Draft Copy gb Chart Complete MTDD
--- NOTE | 2016-07-15 01:26 | EDDOCDS ---
Nurse's Notes [facility] Name: Regan Mata Age: 76 yrs Sex: Male : 1940 Arrival Date: 07/12/2016 Time: 20:50 Bed 8 Private MD: Dalton Saez MD Diagnosis: Shortness of breath;Hypokalemia;Hypocalcemia Presentation: 07/12 20:55 Presenting complaint: EMS states: patient has had difficulty breathing past couple of nn1 days. Patient went to [facility] ED,transferred for UTI, sacral ulcer, and hypokalema/hypocalcemia. Breathing has improved. Suicide/Homicide risk assessment- the patient denies having any suicidal and/or homicidal ideations and does not present with any other emotional, behavioral or mental health complaints. 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 Transition of care: patient was received from [facility]. 20:55 Acuity: LIANE Level 3 nn1 20:55 Method Of Arrival: Ambulance nn1 20:55 Adult Sepsis Screening: The patient does not have new or worsening altered mentation. nn1 Patient's respiratory rate is less than 22. Systolic blood pressure is greater than 100. Patient has a qSOFA score of 0- Negative Sepsis Screen. Triage Assessment: 21:15 General: Appears in no apparent distress, Behavior is appropriate for age. Pain: nn1 Location: buttocks Pain currently is 7 out of 10 on a pain scale. The patient is triaged at the bedside. See Assessment in Nurses Notes section of ED record. Neurological: Level of Consciousness is awake, alert, obeys commands, Oriented to person, place, time. Respiratory: Airway is patent Respiratory effort is even, unlabored, Respiratory pattern is regular, Breath sounds are clear Reports shortness of breath for a couple of days, denies SOB at this time. GI: Abdomen is non- distended Last BM was July 12, 2016. at 21:17. other Patient has suprapubic catheter, catheter insertion site appears infected. Dried secretions noted around site. Bowel sounds present X 4 quads. : Suprapubic catheter in place Urine is Urine is dark, odor is foul. Derm: Skin is dusky. Derm: Decubitus located on sacrum approximately > 20 cm is stage I other Nonblanchable area throughout sacrum with areas of open skin, no drainage in those areas. Historical: - Allergies: No known drug Allergies; - Home Meds: 1. ferrous sulfate 325 mg (65 mg iron) Oral cpER daily 2. folic acid 1 mg Oral tab 1 tab once daily 3. P-Triz-Ivfxjnm Oral 1 tab daily 4. Lupron Depot (6 Month) 45 mg intramuscular sykt every 6 months 5. metoprolol succinate 25 mg Tb24 1 tab once daily 6. omeprazole 40 mg Oral cpDR 1 cap once daily 7. oxybutynin chloride 10 mg Oral cp24 1 tab once daily 8. prednisone 5 mg Oral tab 1 tab 2 times per day 9. Genny-Edi 0.8 mg oral tab daily 10. Vitamin D Oral daily 11. 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 No barriers to communication noted, The patient speaks fluent Congolese, Speaks appropriately for age. - Family history: No immediate family members are acutely ill. - : The pt / caregiver states he / she is not on anticoagulants. Home medication list is obtained from [facility] records/ . - Exposure Risk Screening:: None identified. Screenin:52 Infection Control. sew 21:01 Screening information is obtained from family members. Fall risk: At risk due to gait nn1 disturbance, uses cane for ambulation . Assistance ADL's: Requires assistance with meal preparation, this assistance is provided by family members, bathing, assistance is provided by family members, dressing, assistance is provided by family members, toileting, assistance is provided by family members, ambulation, assistance is provided by family members, housework, assistance is provided by family members, medication administration, assistance is provided by family members. Abuse/DV Screen: The patient / caregiver reports he/she is: not in a situation that causes fear, pain or injury. Nutritional screening: No deficits noted. Advance Directives: Currently, there is a health care proxy, Kristy Mata, . home support is adequate. Assessment: 21:20 General: See triage assessment. . nn1 22:00 General: Appears in no apparent distress, comfortable, Behavior is appropriate for age, nn1 cooperative. Neurological: Level of Consciousness is awake, alert. Respiratory: Airway is patent Respiratory effort is even, unlabored, Respiratory pattern is regular, symmetrical. Derm: Skin is dusky. 23:19 General: Appears to be sleeping. Behavior is quiet. nn1 23:58 General: Patient given water, patient has no other complaints at this time. . Pain: nn1 Location: buttocks Pain currently is 7 out of 10 on a pain scale. Neurological: Level of Consciousness is awake, alert, Oriented to person, place, time. Respiratory: No deficits noted. Airway is patent Respiratory effort is even, unlabored, Respiratory pattern is regular, symmetrical. Derm: Skin is dusky. Vital Signs: 21:16 Resp 16; Temp 97.3; Pulse Ox 93% 3 lpm ; ajs 21:30 BP 116 / 55 RA; Pulse 100; Resp 20 S; Pulse Ox 94% on 2 lpm NC; af2 01 00:02 BP 127 / 58; Pulse 94; Resp 18; Temp 99.3(TE); Pulse Ox 96% on 3 lpm NC; Pain 7/10; nn1 Vitals: 07/12 20:55 Log In Time N/A - ambulance arrival. nn1 ED Course: 20:51 Patient visited by Annette Vences. sew 20:51 Patient moved to 8 sew 20:52 Dalton Saez is Private Physician. sew 20:58 Triage Initiated nn1 21:06 Dillan Williamson MD is Attending Physician. br1 21:13 Patient visited by Dillan Williamson MD. br1 21:15 Pt greeted and oriented to ED. Patient advised of names of staff involved in care, ajs location of call goel, wait times and NPO status. Accompanied by Family Member, Patient has correct armband on for positive identification. Placed in gown. Bed in low position. Call light in reach. Side rails up X2. Cleaned of incontinence. playground monitor on. Pulse ox on. NIBP on. 21:16 Patient visited by Mercedes Johnson. ajs 21:30 Troponin Sent. af2 21:30 BMP Sent. af2 21:30 CBC with Diff Sent. af2 21:31 Patient visited by Jeanine Richardson RN. af2 21:31 Inserted saline lock: 20 gauge in right antecubital area and blood collected. The af2 patient tolerated the procedure well. 21:43 -Influenza A&B Rapid Antigen - Nose Sent. nn1 21:43 -Blood Culture Sent. nn1 21:50 Mayra Aragon is Hospitalizing Provider. br1 22:08 Patient visited by Julienne Clark, Care Support Representative. jlm 22:08 EKG done. (by ED staff). Reviewed by Dillan Williamson MD. jlm 22:28 Barbi Rodrigues fisheries enforcement officer. ys2 22:47 [facility] Payment Agreement was scanned into [employer] and attached to record. jpb 23:32 CT Chest Without Contrast Returned. EDMS 07/13 00:01 The patient / caregiver is instructed regarding the plan of care and ED course. nn1 00:01 No procedures done that require assistance. nn1 07/14 08:15 T-Sheet-- Draft Copy was scanned into [employer] and attached to record. gb Order Results: Lab Order: CBC with Diff; SPEC'M 07/12/16 21:27 Test: WHITE BLOOD COUNT; Value: 16.1; Range: 4.0-10.0; Abnormal: Above high normal; Units: K/mm3; Status: F Test: RED BLOOD COUNT; Value: 3.51; Range: 4.30-6.10; Abnormal: Below low normal; Units: M/mm3; Status: F Test: HEMOGLOBIN; Value: 11.7; Range: 14.0-18.0; Abnormal: Below low normal; Units: g/dl; Status: F Test: HEMATOCRIT; Value: 34.9; Range: 42.0-52.0; Abnormal: Below low normal; Units: %; Status: F Test: MEAN CORPUSCULAR VOLUME; Value: 99.5; Range: 80.0-96.0; Abnormal: Above high normal; Units: fl; Status: F Test: MEAN CORPUSCULAR HEMOGLOBIN; Value: 33.3; Range: 27.0-33.0; Abnormal: Above high normal; Units: pg; Status: F Test: MEAN CORPUSCULAR HGB CONC; Value: 33.5; Range: 32.0-36.5; Units: g/dl; Status: F Test: RED CELL DISTRIBUTION WIDTH; Value: 14.1; Range: 11.5-14.5; Units: %; Status: F Test: PLATELET COUNT, AUTOMATED; Value: 258; Range: 150-450; Units: k/mm3; Status: F Test: NEUTROPHILS %; Value: 93.6; Range: 36.0-66.0; Abnormal: Above high normal; Units: %; Status: F Test: LYMPH %; Value: 3.6; Range: 24.0-44.0; Abnormal: Below low normal; Units: %; Status: F Test: MONO %; Value: 1.5; Range: 0.0-5.0; Units: %; Status: F Test: EOS %; Value: 0.3; Range: 0.0-3.0; Units: %; Status: F Test: BASO %; Value: 0.1; Range: 0.0-1.0; Units: %; Status: F Test: LARGE UNSTAINED CELL %; Value: 0.9; Range: 0.0-4.0; Units: %; Status: F Test: NEUTROPHILS #; Value: 15.1; Range: 1.8-7.7; Abnormal: Above high normal; Units: K/mm3; Status: F Test: LYMPH #; Value: 0.6; Range: 1.5-4.5; Abnormal: Below low normal; Units: K/mm3; Status: F Test: MONO #; Value: 0.2; Range: 0.0-0.8; Units: K/mm3; Status: F Test: EOS #; Value: 0.0; Range: 0.0-0.50; Units: K/mm3; Status: F Test: BASO #; Value: 0.0; Range: 0.0-0.2; Units: K/mm3; Status: F Test: LARGE UNSTAINED CELL #; Value: 0.1; Range: 0.0-0.4; Units: K/mm3; Status: F Lab Order: [facility]; SPEC'M 07/12/16 21:27 Test: GLUCOSE, FASTING; Value: 91; Range: 83-110; Units: MG/DL; Status: F Test: BLOOD UREA NITROGEN; Value: 36; Range: 7-18; Abnormal: Above high normal; Units: MG/DL; Status: F Test: CREATININE FOR GFR; Value: 2.19; Range: 0.70-1.30; Abnormal: Above high normal; Units: MG/DL; Status: F Test: GLOMERULAR FILTRATION RATE; Value: 31.1; Range: >42; Abnormal: Below low normal; Status: F Test: SODIUM LEVEL; Value: 145; Range: 136-145; Units: MEQ/L; Status: F Test: POTASSIUM SERUM; Value: 3.7; Range: 3.5-5.1; Units: MEQ/L; Status: F Test: CHLORIDE LEVEL; Value: 114; Range: 98-107; Abnormal: Above high normal; Units: MEQ/L; Status: F Test: CARBON DIOXIDE LEVEL; Value: 16; Range: 21-32; Abnormal: Below low normal; Units: MEQ/L; Status: F Test: ANION GAP; Value: 15; Range: 8-16; Units: MEQ/L; Status: F Test: CALCIUM LEVEL; Value: 6.5; Range: 8.8-10.2; Abnormal: Below low normal; Units: MG/DL; Status: F Test Note: ; Units are mL/min/1.73 m2 Chronic Kidney Disease Staging per NKF: Stage I & II GFR >=60 Normal to Mildly Decreased Stage III GFR 30-59 Moderately Decreased Stage IV GFR 15-29 Severely Decreased Stage V GFR <15 Very Little GFR Left ESRD GFR <15 on COKE INSPECTOR Lab Order: Troponin; SPEC'M 07/12/16 21:27 Test: TROPONIN I; Value: 0.12; Range: < 0.10; Abnormal: Above high normal; Units: NG/ML; Status: F Test Note: ; Troponin I Reference Interval for [employer] LOCI: 99th Percentile= 0.00-0.045 ng/ml Risk Stratification: <= 0.10 ng/ml Decreased Risk for Adverse Clinical Events. 0.10-1.50 ng/ml Increased Risk for Adverse Clinical Events. Evaluation of additional criterion and/or repeat testing in 2-6 hours is suggested to rule out myocardial damage. >= 1.50 ng/ml Indicative of Myocardial Injury. Lab Order: -Influenza A&B Rapid Antigen - Nose; SPEC'M 07/12/16 21:39 Test: INFLUENZA A RAPID SCR by ICA; Value: INFLUENZA A RESULTS NEGATIVE; Status: F Test: INFLUENZA A RAPID SCR by ICA; Value: Comments:; Status: F Test: INFLUENZA B RAPID SCR by ICA; Value: INFLUENZA B RESULTS NEGATIVE; Status: F Test Note: ; The Influenza test is a direct rapid immunoassay for the qualitative detection of Influenza viral antigen. Cell culture (Viral Culture) testing should be considered to confirm NEGATIVE results and to assist in detecting other viruses that can provide similar clinical symptoms. Please contact the lab within 24 hours ([phone]) if confirmatory testing is desired. Lab Order: BNP; SPEC'M 07/12/16 21:27 Test: BRAIN NATRIURETIC PEPTIDE; Value: 201; Range: <100; Abnormal: Above high normal; Units: PG/ML; Status: F Lab Order: C REACTIVE PROTEIN QUANTITATIV; SPEC'M 07/12/16 21:27 Test: C REACTIVE PROTEIN QUANTITATIV; Value: 28.90; Range: 0.00-0.30; Abnormal: Above high normal; Units: MG/DL; Status: F Radiology Order: CT Chest Without Contrast Test: CT Chest Without Contrast REASON FOR EXAMINATION: Shortness of Breath; ; CLINICAL HISTORY: Shortness of breath.; TECHNIQUE: CT chest without contrast.; ; COMPARISON: No pertinent prior studies are available at this time.; ; CT CHEST WITHOUT CONTRAST:; Lungs: There are bilateral dependent consolidations, right lower lobe greater than left. Some of thes; e consolidations demonstrate groundglass nodules There is a moderate right pleural effusion.; Heart: Normal size. No significant effusion.; Aorta: Normal caliber.; Mediastinum and vic: No significant lymphadenopathy.; Bony thorax: There is calcification of the anterior longitudinal ligament of the spine consistent wit; h ankylosing spondylitis.; Limited upper abdomen: Cholelithiasis.; IMPRESSION: Bilateral dependent consolidations with moderate right pleural effusion. Consider aspirat; ion type pneumonia.; ; Outcome: 07/12 21:50 Decision to Hospitalize by Provider. br1 07/13 00:00 Discharge Assessment: Patient awake, alert and oriented x 3. No cognitive and/or nn1 functional deficits noted. Patient verbalized understanding of disposition instructions. patient administered narcotics - no. The following High Risk Discharge criteria are identified: None. Admitted to PCU accompanied by nurse, accompanied by tech, family with patient, via stretcher, with oxygen, on monitor, with chart. Condition: stable. No special radiology studies were completed. Property :Personal belongings accompany Pt. 00:01 Admission hand-off: Report Faxed Fax receipt verified by JANEEN Guillory . nn1 00:24 Patient left the ED. nn1 Signatures: Dispatcher [employer] EDMS Eva Garrido, Reg Reg Dillan Russell MD MD br1 Mercedes Johnson Joel jpb Wallace, Julienne Morel, Care Support Representative Unit Jeanine BeckerRN RN af2 Mana BoneRN RN nn1 Barbi Rodrigues 2 Chart Complete MTDD
--- NOTE | 2016-07-15 01:26 | EDDOCDS ---
Physician Documentation [facility] Name: Regan Mata Age: 76 yrs Sex: Male : 1940 Arrival Date: 07/12/2016 Time: 20:50 Bed 8 Private MD: Daltno Saez MD Disposition: 07/12/16 21:50 Hospitalization ordered by Mayra Aragon for Inpatient Admission. Preliminary diagnosis are Shortness of breath, Hypokalemia, Hypocalcemia. - Bed requested for PCU. - Status is Inpatient Admission. nn1 - Condition is Stable. - Problem is new. - Symptoms are unchanged. Historical: - Allergies: No known drug Allergies; - Home Meds: 1. ferrous sulfate 325 mg (65 mg iron) Oral cpER daily 2. folic acid 1 mg Oral tab 1 tab once daily 3. T-Assj-Jfxjpuu Oral 1 tab daily 4. Lupron Depot (6 Month) 45 mg intramuscular sykt every 6 months 5. metoprolol succinate 25 mg Tb24 1 tab once daily 6. omeprazole 40 mg Oral cpDR 1 cap once daily 7. oxybutynin chloride 10 mg Oral cp24 1 tab once daily 8. prednisone 5 mg Oral tab 1 tab 2 times per day 9. Genny-Edi 0.8 mg oral tab daily 10. Vitamin D Oral daily 11. 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 No barriers to communication noted, The patient speaks fluent Maltese, Speaks appropriately for age. - Family history: No immediate family members are acutely ill. - : The pt / caregiver states he / she is not on anticoagulants. Home medication list is obtained from [place] records/ . - Exposure Risk Screening:: None identified. Vital Signs: 07/12 21:16 Resp 16; Temp 97.3; Pulse Ox 93% 3 lpm ; ajs 21:30 BP 116 / 55 RA; Pulse 100; Resp 20 S; Pulse Ox 94% on 2 lpm NC; af2 07/13 00:02 BP 127 / 58; Pulse 94; Resp 18; Temp 99.3(TE); Pulse Ox 96% on 3 lpm NC; Pain 7/10; nn1 MDM: 07/12 21:14 IV Saline Lock ordered. br1 21:14 Hand Welt Butter/Pulse Ox/q 30 min VS ordered. br1 21:15 CBC with Diff Ordered. EDMS 21:15 BMP Ordered. EDMS 21:21 Oxygen at 2L/min via NC ordered. br1 21:21 Troponin Ordered. EDMS 21:21 ECG WITH READING ER PHYS+CARDIAG ordered. EDMS 21:25 Vital Signs ordered. br1 21:25 BED REQUEST+ADM ordered. EDMS 21:26 -Blood Culture (Adults Only), peripheral from different site, or from device/port/PICC br1 etc. if present ordered. 21:27 -Blood Culture (Adults Only), peripheral from different site, or from device/port/PICC sew etc. if present complete. 21:27 -Blood Culture Ordered. EDMS 21:28 CT Chest Without Contrast Ordered. EDMS 21:29 BLOOD CULTURES Ordered. EDMS 21:32 -Influenza A&B Rapid Antigen - Nose Ordered. EDMS 21:38 BNP Ordered. EDMS 22:39 CBC with Diff Reviewed. br1 22:39 BMP Reviewed. br1 22:39 Troponin Reviewed. br1 22:39 BNP Reviewed. br1 22:39 -Influenza A&B Rapid Antigen - Nose Reviewed. br1 22:44 Admission / Observation Status ordered. EDMS 22:44 2 GRAM SODIUM DIET ordered. EDMS 22:45 COMPLETE BLOOD COUNT Ordered. EDMS 22:45 BASIC METABOLIC PROFILE Ordered. EDMS 22:45 SPUTUM CULTURE AND GRAM STAIN Ordered. EDMS 22:46 Financial registration complete. jpb 22:47 [place] [place] Payment Agreement was scanned into [employer] and attached to record. jpb 22:59 LACTIC ACID LEVEL, LACTATE Ordered. EDMS 22:59 PSA FREE (INCLUDES TOTAL) Ordered. EDMS 23:01 URINALYSIS Ordered. EDMS 23:01 URINE CULTURE Ordered. EDMS 23:18 ARTERIAL BLOOD GAS Ordered. EDMS 23:29 CARDIAC MARKER PANEL Ordered. EDMS 23:29 C REACTIVE PROTEIN QUANTITATIV Ordered. EDMS 07/13 00:07 MRSA SCREEN Ordered. EDMS 07/14 08:15 T-Sheet-- Draft Copy was scanned into [employer] and attached to record. gb Signatures: Dispatcher [employer] EDAK QuesenLeatha Gramajo, RN RN daq Eva Garrido, Reg Reg gb Dillan Williamson MD MD br1 Chele Edouard Sarah sew Nunez, Nikkole,RN RN nn1 The chart was reviewed and I authenticate all verbal orders and agree with the evaluation and treatment provided.Corrections: (The following items were deleted from the chart) 07/12 21:21 21:20 Oxygen 2L via NC, titrate to maintain PO >95% ordered. br1 br1 23:27 22:45 CARDIAC MARKER PANEL ordered. EDMS EDMS 23:29 22:45 C REACTIVE PROTEIN QUANTITATIV ordered. EDMS EDMS 23:29 22:59 C REACTIVE PROTEIN QUANTITATIV ordered. EDMS EDMS Attachments: 22:47 [place] Payment Agreement jpb 07/14 08:15 T-Sheet-- Draft Copy gb Chart Complete MTDD
--- NOTE | 2016-07-15 01:46 | PHACANCOPD ---
PHARMACY VANCOMYCIN DOSING Pt Demographics Demographics Patient Age:76 , Weight:78.500 , Gender: male Adjusted Body Weight Date: 07/13/16, Adjusted Body Weight: [78.7] Kg Events Past 24 Hours Events Past 24 Hours: NO: Change in CrCl, Dialysis, Diuretic Therapy, Elevation in WBC, Fever, Other, Pending Diagnostics, Pending Procedures Vancomycin Vancomycin Target Ranges: 15-20 mcg/ml Vancomycin Load Y/N: Yes Load Dose Date Time Vancomycin Load Dose: 1500MG Date: 07-13 Time: 0200 Vancomycin Dose Date: 07/15/16. Current Vancomycin Dose: [1000MG Q24H] Intermittent Dosing?: No Labs Labs Item Value Date Time White Blood Count 11.9 K/mm3 H 07/14/16 0520 Creatinine 1.80 MG/DL H 07/14/16 0520 Vancomycin Level Trough 17.3 UG/ML 07/15/16 0056 Vital Signs Label Value Date Time Patient Temperature 99.7 degrees F 07/14/16 2359 Temperature Source Tympanic 07/14/16 2359 Micro Microbiology 07/13/16 Blood Culture - Preliminary, Resulted No Growth after 48 hours. All Specime... 07/12/16 Blood Culture - Preliminary, Resulted No Growth after 48 hours. All Specime... 07/13/16 MRSA Screen - Final, Complete 07/12/16 Influenza Virus Type A Antigen - Final, Complete 07/12/16 Influenza Virus Type B Antigen - Final, Complete 07/13/16 Urine Culture - Final, Complete 07/13/16 Wound Culture, Received Pending Creatinine Clearance Date:07/13/16. Creatinine Clearance: [30.5]. Assessment and Plan Maintaining Current Dose?: Yes Reason for dose change: No Dose Change Pharmacist Note Pharmacist Note Date: 07/15/16. Pharmacist note:Trough of 17.3 is within target range. will continue current dosing. Will continue to monitor and make adjustments as needed. BHARGAV CORTES PHARMAC[facility] Jul 15, 2016 01:46
[2016-07-15] MEDS: VANCOMYCIN HCL 1,000 MG, VIAL MATE ADAPTER 1 EACH in D5W 250 ML IV SCH (01:52)
[2016-07-15] MEDS: MEROPENEM INJ 2 GM in NS 100 ML IV SCH ×2 (05:00→16:05)
[2016-07-15] MEDS: SLF 3 ML SYR IV SCH ×3 (05:01→22:00)
[2016-07-15 05:04] VITALS: BP 122/58
[2016-07-15 05:48] LABS: MEAN CORPUSCULAR HGB CONC 33.8 g/dl (32.0-36.5); MEAN CORPUSCULAR VOLUME 97.7 fl (80.0-96.0); WHITE BLOOD COUNT 7.5 K/mm3 (4.0-10.0)
[2016-07-15 06:02] LABS: CALCIUM LEVEL 6.3 MG/DL (8.8-10.2); CREATININE FOR GFR 1.6 MG/DL (0.70-1.30); GLOMERULAR FILTRATION RATE 44.7 (>42); POTASSIUM SERUM 2.9 MEQ/L (3.5-5.1)
--- NOTE | 2016-07-15 06:02 | IPN ---
DATE OF SERVICE: 07/14/2016 Mr. Mata is feeling perhaps a little bit better today. He is not complaining of chest pain, not particularly short of breath. He is tolerating a diet. Temperature 96.6, pulse 88, respiratory rate 18, blood pressure 122/56, 96% on 2 liters nasal cannula. Intake and output (I and O) notable for a positive fluid balance of 1510. Two bowel movements noted. He is awake, appropriately interactive, pleasantly conversant. Heart is in a regular rate and rhythm. He is no longer tachycardic. Abdomen is soft, doughy, nontender. White cell count 11.9, hemoglobin 9.3, BUN 34, creatinine 1.8 improved from presentation of 2.19. Sodium 147, potassium 3.1. C-reactive protein is 20.2, which is improved from presentation of 28.9. Speech therapy evaluation done today by Ariela Herron resulted in barium swallow, results of which are still pending. My assessment is as follows: This is a 76-year-old with suspected aspiration pneumonia. Plan is as follows: 1. Patient has suspected aspiration pneumonia and is continued on broad spectrum antibiotics with some improvement. He does have a right-sided effusion. I did review the CT scan done at [place] with the radiologist yesterday. He does have evidence of what is perhaps a lung mass on imaging. He now is planned for a PET scan as an outpatient. He does have a history of metastatic prostate cancer with bony metastases and planned possibly for changes in his chemotherapy. 2. Patient has acute kidney injury, which is improving toward his baseline of 1.7. He does also today have stable hypernatremia and hypokalemia. Will switch fluids to D5W and give supplemental potassium. The patient has requested liquid potassium as it is difficult to swallow pills. 3. The patient has atrial fibrillation, had RVR yesterday. Responded nicely to beta blockade and is generally improving. 4. Patient has a DO NOT RESUSCITATE/DO NOT INTUBATE.
[2016-07-15 08:00] VITALS: BP 113/64
[2016-07-15] MEDS: POTASSIUM CHLORIDE 10% LIQ 20 MEQ/15 ML UDC PO SCH ×2 (08:37→22:14)
[2016-07-15] MEDS: ENOXAPARIN 30 MG/0.3 ML SYR (J1650) SC SCH (08:37)
[2016-07-15] MEDS ORDERED: POTASSIUM CHLORIDE 10% LIQ 20 MEQ/15 ML UDC PO SCH (09:00)
[2016-07-15 12:00] VITALS: BP 123/60
[2016-07-15] MEDS: FERROUS SULFATE 325MG TAB PO SCH (12:34)
[2016-07-15] MEDS: FOLIC ACID 1 MG TAB PO SCH (12:34)
[2016-07-15] MEDS: K-PHOS ORIGINAL (POT.ACID PHOSPHATE) 500MG TAB PO SCH (12:34)
[2016-07-15 16:00] VITALS: BP 136/61
[2016-07-15] MEDS: OMEPRAZOLE 20 MG CAP PO SCH (17:46)
[2016-07-15 20:00] VITALS: BP 136/62
[2016-07-15] MEDS: oxyBUTYnin *DITROPAN XL* 5 MG TABCR PO SCH (22:14)
[2016-07-15 23:59] VITALS: BP 118/58
[2016-07-16] MEDS: METOPROLOL TART 25 MG TABLET PO SCH ×5 (00:51→23:41)
[2016-07-16] MEDS: VANCOMYCIN HCL 1,000 MG, VIAL MATE ADAPTER 1 EACH in D5W 250 ML IV SCH (02:06)
[2016-07-16] MEDS: D5W 1,000 ML IV SCH (02:06)
[2016-07-16] MEDS: MEROPENEM INJ 2 GM in NS 100 ML IV SCH ×2 (04:28→16:19)
[2016-07-16 04:45] VITALS: BP 124/58
[2016-07-16] MEDS: SLF 3 ML SYR IV SCH ×3 (05:04→21:23)
[2016-07-16 05:54] LABS: MEAN CORPUSCULAR HGB CONC 33.6 g/dl (32.0-36.5); MEAN CORPUSCULAR VOLUME 98.2 fl (80.0-96.0); RED CELL DISTRIBUTION WIDTH 14.8 % (11.5-14.5); WHITE BLOOD COUNT 7.4 K/mm3 (4.0-10.0)
[2016-07-16 06:02] LABS: CREATININE FOR GFR 1.47 MG/DL (0.70-1.30); GLOMERULAR FILTRATION RATE 49.3 (>42); POTASSIUM SERUM 3.5 MEQ/L (3.5-5.1)
[2016-07-16 08:00] VITALS: BP 113/57
[2016-07-16] MEDS: ENOXAPARIN 30 MG/0.3 ML SYR (J1650) SC SCH (09:36)
[2016-07-16 12:00] VITALS: BP 112/77
[2016-07-16] MEDS: K-PHOS ORIGINAL (POT.ACID PHOSPHATE) 500MG TAB PO SCH (12:20)
[2016-07-16] MEDS: FOLIC ACID 1 MG TAB PO SCH (12:20)
[2016-07-16] MEDS: FERROUS SULFATE 325MG TAB PO SCH (12:20)
--- NOTE | 2016-07-16 13:45 | EDDOCDS ---
Physician Documentation [facility] Name: Regan Mata Age: 76 yrs Sex: Male : 1940 Arrival Date: 07/12/2016 Time: 20:50 Bed 8 Private MD: Dalton Saez MD Disposition: 07/12/16 21:50 Hospitalization ordered by Mayra Aragon for Inpatient Admission. Preliminary diagnosis are Shortness of breath, Hypokalemia, Hypocalcemia. - Bed requested for PCU. - Status is Inpatient Admission. nn1 - Condition is Stable. - Problem is new. - Symptoms are unchanged. Historical: - Allergies: No known drug Allergies; - Home Meds: 1. ferrous sulfate 325 mg (65 mg iron) Oral cpER daily 2. folic acid 1 mg Oral tab 1 tab once daily 3. S-Eejf-Voaelle Oral 1 tab daily 4. Lupron Depot (6 Month) 45 mg intramuscular sykt every 6 months 5. metoprolol succinate 25 mg Tb24 1 tab once daily 6. omeprazole 40 mg Oral cpDR 1 cap once daily 7. oxybutynin chloride 10 mg Oral cp24 1 tab once daily 8. prednisone 5 mg Oral tab 1 tab 2 times per day 9. Genny-Edi 0.8 mg oral tab daily 10. Vitamin D Oral daily 11. 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 No barriers to communication noted, The patient speaks fluent Burkinan, Speaks appropriately for age. - Family history: No immediate family members are acutely ill. - : The pt / caregiver states he / she is not on anticoagulants. Home medication list is obtained from [place] records/ . - Exposure Risk Screening:: None identified. Vital Signs: 07/12 21:16 Resp 16; Temp 97.3; Pulse Ox 93% 3 lpm ; ajs 21:30 BP 116 / 55 RA; Pulse 100; Resp 20 S; Pulse Ox 94% on 2 lpm NC; af2 07/13 00:02 BP 127 / 58; Pulse 94; Resp 18; Temp 99.3(TE); Pulse Ox 96% on 3 lpm NC; Pain 7/10; nn1 MDM: 07/12 21:14 IV Saline Lock ordered. br1 21:14 Welder Fitter Apprentice/Pulse Ox/q 30 min VS ordered. br1 21:15 CBC with Diff Ordered. EDMS 21:15 BMP Ordered. EDMS 21:21 Oxygen at 2L/min via NC ordered. br1 21:21 Troponin Ordered. EDMS 21:21 ECG WITH READING ER PHYS+CARDIAG ordered. EDMS 21:25 Vital Signs ordered. br1 21:25 BED REQUEST+ADM ordered. EDMS 21:26 -Blood Culture (Adults Only), peripheral from different site, or from device/port/PICC br1 etc. if present ordered. 21:27 -Blood Culture (Adults Only), peripheral from different site, or from device/port/PICC sew etc. if present complete. 21:27 -Blood Culture Ordered. EDMS 21:28 CT Chest Without Contrast Ordered. EDMS 21:29 BLOOD CULTURES Ordered. EDMS 21:32 -Influenza A&B Rapid Antigen - Nose Ordered. EDMS 21:38 BNP Ordered. EDMS 22:39 CBC with Diff Reviewed. br1 22:39 BMP Reviewed. br1 22:39 Troponin Reviewed. br1 22:39 BNP Reviewed. br1 22:39 -Influenza A&B Rapid Antigen - Nose Reviewed. br1 22:44 Admission / Observation Status ordered. EDMS 22:44 2 GRAM SODIUM DIET ordered. EDMS 22:45 COMPLETE BLOOD COUNT Ordered. EDMS 22:45 BASIC METABOLIC PROFILE Ordered. EDMS 22:45 SPUTUM CULTURE AND GRAM STAIN Ordered. EDMS 22:46 Financial registration complete. jpb 22:47 [place] [place] was scanned into Med [employer] and attached to record. jpb 22:59 LACTIC ACID LEVEL, LACTATE Ordered. EDMS 22:59 PSA FREE (INCLUDES TOTAL) Ordered. EDMS 23:01 URINALYSIS Ordered. EDMS 23:01 URINE CULTURE Ordered. EDMS 23:18 ARTERIAL BLOOD GAS Ordered. EDMS 23:29 CARDIAC MARKER PANEL Ordered. EDMS 23:29 C REACTIVE PROTEIN QUANTITATIV Ordered. EDMS 07/13 00:07 MRSA SCREEN Ordered. EDMS 07/14 08:15 T-Sheet-- Draft Copy was scanned into Med ePad and attached to record. gb Signatures: Dispatcher MedHost EDKY QuesenLeatha Gramajo, RN RN daq Eva Garrido, Reg Reg gb Dillan Williamson MD MD br1 Chele Edouard Sarah sew Nunez, Nikkole,RN RN nn1 The chart was reviewed and I authenticate all verbal orders and agree with the evaluation and treatment provided.Corrections: (The following items were deleted from the chart) 07/12 21:21 21:20 Oxygen 2L via NC, titrate to maintain PO >95% ordered. br1 br1 23:27 22:45 CARDIAC MARKER PANEL ordered. EDMS EDMS 23:29 22:45 C REACTIVE PROTEIN QUANTITATIV ordered. EDMS EDMS 23:29 22:59 C REACTIVE PROTEIN QUANTITATIV ordered. EDMS EDMS Attachments: 22:47 [place] Payment Agreement jpb 07/14 08:15 T-Sheet-- Draft Copy gb Chart Complete MTDD
--- NOTE | 2016-07-16 13:45 | EDDOCDS ---
Nurse's Notes [facility] Name: Regan Mata Age: 76 yrs Sex: Male : 1940 Arrival Date: 07/12/2016 Time: 20:50 Bed 8 Private MD: Dalton Saez MD Diagnosis: Shortness of breath;Hypokalemia;Hypocalcemia Presentation: 07/12 20:55 Presenting complaint: EMS states: patient has had difficulty breathing past couple of nn1 days. Patient went to [facility],transferred for UTI, sacral ulcer, and hypokalema/hypocalcemia. Breathing has improved. Suicide/Homicide risk assessment- the patient denies having any suicidal and/or homicidal ideations and does not present with any other emotional, behavioral or mental health complaints. Status: Patient is not a transaction advisory services manager or dependent. Transition of care: patient was received from [facility]. 20:55 Acuity: LIANE Level 3 nn1 20:55 Method Of Arrival: Ambulance nn1 20:55 Adult Sepsis Screening: The patient does not have new or worsening altered mentation. nn1 Patient's respiratory rate is less than 22. Systolic blood pressure is greater than 100. Patient has a qSOFA score of 0- Negative Sepsis Screen. Triage Assessment: 21:15 General: Appears in no apparent distress, Behavior is appropriate for age. Pain: nn1 Location: buttocks Pain currently is 7 out of 10 on a pain scale. The patient is triaged at the bedside. See Assessment in Nurses Notes section of ED record. Neurological: Level of Consciousness is awake, alert, obeys commands, Oriented to person, place, time. Respiratory: Airway is patent Respiratory effort is even, unlabored, Respiratory pattern is regular, Breath sounds are clear Reports shortness of breath for a couple of days, denies SOB at this time. GI: Abdomen is non- distended Last BM was July 12, 2016. at 21:17. other Patient has suprapubic catheter, catheter insertion site appears infected. Dried secretions noted around site. Bowel sounds present X 4 quads. : Suprapubic catheter in place Urine is Urine is dark, odor is foul. Derm: Skin is dusky. Derm: Decubitus located on sacrum approximately > 20 cm is stage I other Nonblanchable area throughout sacrum with areas of open skin, no drainage in those areas. Historical: - Allergies: No known drug Allergies; - Home Meds: 1. ferrous sulfate 325 mg (65 mg iron) Oral cpER daily 2. folic acid 1 mg Oral tab 1 tab once daily 3. D-Dgui-Bkrkhtw Oral 1 tab daily 4. Lupron Depot (6 Month) 45 mg intramuscular sykt every 6 months 5. metoprolol succinate 25 mg Tb24 1 tab once daily 6. omeprazole 40 mg Oral cpDR 1 cap once daily 7. oxybutynin chloride 10 mg Oral cp24 1 tab once daily 8. prednisone 5 mg Oral tab 1 tab 2 times per day 9. Genny-Edi 0.8 mg oral tab daily 10. Vitamin D Oral daily 11. 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 No barriers to communication noted, The patient speaks fluent Afghan, Speaks appropriately for age. - Family history: No immediate family members are acutely ill. - : The pt / caregiver states he / she is not on anticoagulants. Home medication list is obtained from [facility] records/ . - Exposure Risk Screening:: None identified. Screenin:52 Infection Control. sew 21:01 Screening information is obtained from family members. Fall risk: At risk due to gait nn1 disturbance, uses cane for ambulation . Assistance ADL's: Requires assistance with meal preparation, this assistance is provided by family members, bathing, assistance is provided by family members, dressing, assistance is provided by family members, toileting, assistance is provided by family members, ambulation, assistance is provided by family members, housework, assistance is provided by family members, medication administration, assistance is provided by family members. Abuse/DV Screen: The patient / caregiver reports he/she is: not in a situation that causes fear, pain or injury. Nutritional screening: No deficits noted. Advance Directives: Currently, there is a health care proxy, Kirsty Mata, . home support is adequate. Assessment: 21:20 General: See triage assessment. . nn1 22:00 General: Appears in no apparent distress, comfortable, Behavior is appropriate for age, nn1 cooperative. Neurological: Level of Consciousness is awake, alert. Respiratory: Airway is patent Respiratory effort is even, unlabored, Respiratory pattern is regular, symmetrical. Derm: Skin is dusky. 23:19 General: Appears to be sleeping. Behavior is quiet. nn1 23:58 General: Patient given water, patient has no other complaints at this time. . Pain: nn1 Location: buttocks Pain currently is 7 out of 10 on a pain scale. Neurological: Level of Consciousness is awake, alert, Oriented to person, place, time. Respiratory: No deficits noted. Airway is patent Respiratory effort is even, unlabored, Respiratory pattern is regular, symmetrical. Derm: Skin is dusky. Vital Signs: 21:16 Resp 16; Temp 97.3; Pulse Ox 93% 3 lpm ; ajs 21:30 BP 116 / 55 RA; Pulse 100; Resp 20 S; Pulse Ox 94% on 2 lpm NC; af2 01 00:02 BP 127 / 58; Pulse 94; Resp 18; Temp 99.3(TE); Pulse Ox 96% on 3 lpm NC; Pain 7/10; nn1 Vitals: 07/12 20:55 Log In Time N/A - ambulance arrival. nn1 ED Course: 20:51 Patient visited by Annette Vences. sew 20:51 Patient moved to 8 sew 20:52 Dalton Saez is Private Physician. sew 20:58 Triage Initiated nn1 21:06 Dillan Williamson MD is Attending Physician. br1 21:13 Patient visited by Dillan Williamson MD. br1 21:15 Pt greeted and oriented to ED. Patient advised of names of staff involved in care, ajs location of call goel, wait times and NPO status. Accompanied by Family Member, Patient has correct armband on for positive identification. Placed in gown. Bed in low position. Call light in reach. Side rails up X2. Cleaned of incontinence. manager internal on. Pulse ox on. NIBP on. 21:16 Patient visited by Mercedes Johnson. ajs 21:30 Troponin Sent. af2 21:30 BMP Sent. af2 21:30 CBC with Diff Sent. af2 21:31 Patient visited by Jeanine Richardson RN. af2 21:31 Inserted saline lock: 20 gauge in right antecubital area and blood collected. The af2 patient tolerated the procedure well. 21:43 -Influenza A&B Rapid Antigen - Nose Sent. nn1 21:43 -Blood Culture Sent. nn1 21:50 Mayra Aragon is Hospitalizing Provider. br1 22:08 Patient visited by Julienne Clark, Radio Division Captain. jlm 22:08 EKG done. (by ED staff). Reviewed by Dillan Williamson MD. jlm 22:28 Barbi Rodrigues noise tester. ys2 22:47 [place] [place] Payment Agreement was scanned into [employer] and attached to record. jpb 23:32 CT Chest Without Contrast Returned. EDMS 07/13 00:01 The patient / caregiver is instructed regarding the plan of care and ED course. nn1 00:01 No procedures done that require assistance. nn1 07/14 08:15 T-Sheet-- Draft Copy was scanned into [employer] and attached to record. gb Order Results: Lab Order: CBC with Diff; SPEC'M 07/12/16 21:27 Test: WHITE BLOOD COUNT; Value: 16.1; Range: 4.0-10.0; Abnormal: Above high normal; Units: K/mm3; Status: F Test: RED BLOOD COUNT; Value: 3.51; Range: 4.30-6.10; Abnormal: Below low normal; Units: M/mm3; Status: F Test: HEMOGLOBIN; Value: 11.7; Range: 14.0-18.0; Abnormal: Below low normal; Units: g/dl; Status: F Test: HEMATOCRIT; Value: 34.9; Range: 42.0-52.0; Abnormal: Below low normal; Units: %; Status: F Test: MEAN CORPUSCULAR VOLUME; Value: 99.5; Range: 80.0-96.0; Abnormal: Above high normal; Units: fl; Status: F Test: MEAN CORPUSCULAR HEMOGLOBIN; Value: 33.3; Range: 27.0-33.0; Abnormal: Above high normal; Units: pg; Status: F Test: MEAN CORPUSCULAR HGB CONC; Value: 33.5; Range: 32.0-36.5; Units: g/dl; Status: F Test: RED CELL DISTRIBUTION WIDTH; Value: 14.1; Range: 11.5-14.5; Units: %; Status: F Test: PLATELET COUNT, AUTOMATED; Value: 258; Range: 150-450; Units: k/mm3; Status: F Test: NEUTROPHILS %; Value: 93.6; Range: 36.0-66.0; Abnormal: Above high normal; Units: %; Status: F Test: LYMPH %; Value: 3.6; Range: 24.0-44.0; Abnormal: Below low normal; Units: %; Status: F Test: MONO %; Value: 1.5; Range: 0.0-5.0; Units: %; Status: F Test: EOS %; Value: 0.3; Range: 0.0-3.0; Units: %; Status: F Test: BASO %; Value: 0.1; Range: 0.0-1.0; Units: %; Status: F Test: LARGE UNSTAINED CELL %; Value: 0.9; Range: 0.0-4.0; Units: %; Status: F Test: NEUTROPHILS #; Value: 15.1; Range: 1.8-7.7; Abnormal: Above high normal; Units: K/mm3; Status: F Test: LYMPH #; Value: 0.6; Range: 1.5-4.5; Abnormal: Below low normal; Units: K/mm3; Status: F Test: MONO #; Value: 0.2; Range: 0.0-0.8; Units: K/mm3; Status: F Test: EOS #; Value: 0.0; Range: 0.0-0.50; Units: K/mm3; Status: F Test: BASO #; Value: 0.0; Range: 0.0-0.2; Units: K/mm3; Status: F Test: LARGE UNSTAINED CELL #; Value: 0.1; Range: 0.0-0.4; Units: K/mm3; Status: F Lab Order: [facility]; SPEC'M 07/12/16 21:27 Test: GLUCOSE, FASTING; Value: 91; Range: 83-110; Units: MG/DL; Status: F Test: BLOOD UREA NITROGEN; Value: 36; Range: 7-18; Abnormal: Above high normal; Units: MG/DL; Status: F Test: CREATININE FOR GFR; Value: 2.19; Range: 0.70-1.30; Abnormal: Above high normal; Units: MG/DL; Status: F Test: GLOMERULAR FILTRATION RATE; Value: 31.1; Range: >42; Abnormal: Below low normal; Status: F Test: SODIUM LEVEL; Value: 145; Range: 136-145; Units: MEQ/L; Status: F Test: POTASSIUM SERUM; Value: 3.7; Range: 3.5-5.1; Units: MEQ/L; Status: F Test: CHLORIDE LEVEL; Value: 114; Range: 98-107; Abnormal: Above high normal; Units: MEQ/L; Status: F Test: CARBON DIOXIDE LEVEL; Value: 16; Range: 21-32; Abnormal: Below low normal; Units: MEQ/L; Status: F Test: ANION GAP; Value: 15; Range: 8-16; Units: MEQ/L; Status: F Test: CALCIUM LEVEL; Value: 6.5; Range: 8.8-10.2; Abnormal: Below low normal; Units: MG/DL; Status: F Test Note: ; Units are mL/min/1.73 m2 Chronic Kidney Disease Staging per NKF: Stage I & II GFR >=60 Normal to Mildly Decreased Stage III GFR 30-59 Moderately Decreased Stage IV GFR 15-29 Severely Decreased Stage V GFR <15 Very Little GFR Left ESRD GFR <15 on BATTERY PARTS ASSEMBLER Lab Order: Troponin; SPEC'M 07/12/16 21:27 Test: TROPONIN I; Value: 0.12; Range: < 0.10; Abnormal: Above high normal; Units: NG/ML; Status: F Test Note: ; Troponin I Reference Interval for [place] LOCI: 99th Percentile= 0.00-0.045 ng/ml Risk Stratification: <= 0.10 ng/ml Decreased Risk for Adverse Clinical Events. 0.10-1.50 ng/ml Increased Risk for Adverse Clinical Events. Evaluation of additional criterion and/or repeat testing in 2-6 hours is suggested to rule out myocardial damage. >= 1.50 ng/ml Indicative of Myocardial Injury. Lab Order: -Influenza A&B Rapid Antigen - Nose; SPEC'M 07/12/16 21:39 Test: INFLUENZA A RAPID SCR by ICA; Value: INFLUENZA A RESULTS NEGATIVE; Status: F Test: INFLUENZA A RAPID SCR by ICA; Value: Comments:; Status: F Test: INFLUENZA B RAPID SCR by ICA; Value: INFLUENZA B RESULTS NEGATIVE; Status: F Test Note: ; The Influenza test is a direct rapid immunoassay for the qualitative detection of Influenza viral antigen. Cell culture (Viral Culture) testing should be considered to confirm NEGATIVE results and to assist in detecting other viruses that can provide similar clinical symptoms. Please contact the lab within 24 hours ([phone]) if confirmatory testing is desired. Lab Order: BNP; SPEC'M 07/12/16 21:27 Test: BRAIN NATRIURETIC PEPTIDE; Value: 201; Range: <100; Abnormal: Above high normal; Units: PG/ML; Status: F Lab Order: C REACTIVE PROTEIN QUANTITATIV; SPEC'M 07/12/16 21:27 Test: C REACTIVE PROTEIN QUANTITATIV; Value: 28.90; Range: 0.00-0.30; Abnormal: Above high normal; Units: MG/DL; Status: F Radiology Order: CT Chest Without Contrast Test: CT Chest Without Contrast REASON FOR EXAMINATION: Shortness of Breath; ; CLINICAL HISTORY: Shortness of breath.; TECHNIQUE: CT chest without contrast.; ; COMPARISON: No pertinent prior studies are available at this time.; ; CT CHEST WITHOUT CONTRAST:; Lungs: There are bilateral dependent consolidations, right lower lobe greater than left. Some of thes; e consolidations demonstrate groundglass nodules There is a moderate right pleural effusion.; Heart: Normal size. No significant effusion.; Aorta: Normal caliber.; Mediastinum and vic: No significant lymphadenopathy.; Bony thorax: There is calcification of the anterior longitudinal ligament of the spine consistent wit; h ankylosing spondylitis.; Limited upper abdomen: Cholelithiasis.; IMPRESSION: Bilateral dependent consolidations with moderate right pleural effusion. Consider aspirat; ion type pneumonia.; ; Outcome: 07/12 21:50 Decision to Hospitalize by Provider. br1 07/13 00:00 Discharge Assessment: Patient awake, alert and oriented x 3. No cognitive and/or nn1 functional deficits noted. Patient verbalized understanding of disposition instructions. patient administered narcotics - no. The following High Risk Discharge criteria are identified: None. Admitted to PCU accompanied by nurse, accompanied by tech, family with patient, via stretcher, with oxygen, on monitor, with chart. Condition: stable. No special radiology studies were completed. Property :Personal belongings accompany Pt. 00:01 Admission hand-off: Report Faxed Fax receipt verified by JANEEN Guillory . nn1 00:24 Patient left the ED. nn1 Signatures: Dispatcher [employer] EDMS Eva Garrido, Reg Reg Dillan Russell MD MD br1 Mercedes Johnson Joel jpb Wallace, Julienne Morel, Radio Division Captain Unit Jeanine BeckerRN RN af2 Mana BoneRN RN nn1 Barbi Rodrigues 2 Chart Complete MTDD
--- NOTE | 2016-07-16 13:45 | EDDOCDS ---
Physician Documentation [facility] Name: Regan Mata Age: 76 yrs Sex: Male : 1940 Arrival Date: 07/12/2016 Time: 20:50 Bed 8 Private MD: Dalton Saez MD Disposition: 07/12/16 21:50 Hospitalization ordered by Mayra Aragon for Inpatient Admission. Preliminary diagnosis are Shortness of breath, Hypokalemia, Hypocalcemia. - Bed requested for PCU. - Status is Inpatient Admission. nn1 - Condition is Stable. - Problem is new. - Symptoms are unchanged. Historical: - Allergies: No known drug Allergies; - Home Meds: 1. ferrous sulfate 325 mg (65 mg iron) Oral cpER daily 2. folic acid 1 mg Oral tab 1 tab once daily 3. R-Zlrz-Kcbiqes Oral 1 tab daily 4. Lupron Depot (6 Month) 45 mg intramuscular sykt every 6 months 5. metoprolol succinate 25 mg Tb24 1 tab once daily 6. omeprazole 40 mg Oral cpDR 1 cap once daily 7. oxybutynin chloride 10 mg Oral cp24 1 tab once daily 8. prednisone 5 mg Oral tab 1 tab 2 times per day 9. Genny-Edi 0.8 mg oral tab daily 10. Vitamin D Oral daily 11. 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 No barriers to communication noted, The patient speaks fluent Armenian, Speaks appropriately for age. - Family history: No immediate family members are acutely ill. - : The pt / caregiver states he / she is not on anticoagulants. Home medication list is obtained from [place] records/ . - Exposure Risk Screening:: None identified. Vital Signs: 07/12 21:16 Resp 16; Temp 97.3; Pulse Ox 93% 3 lpm ; ajs 21:30 BP 116 / 55 RA; Pulse 100; Resp 20 S; Pulse Ox 94% on 2 lpm NC; af2 07/13 00:02 BP 127 / 58; Pulse 94; Resp 18; Temp 99.3(TE); Pulse Ox 96% on 3 lpm NC; Pain 7/10; nn1 MDM: 07/12 21:14 IV Saline Lock ordered. br1 21:14 Cobbler Mckay/Pulse Ox/q 30 min VS ordered. br1 21:15 CBC with Diff Ordered. EDMS 21:15 BMP Ordered. EDMS 21:21 Oxygen at 2L/min via NC ordered. br1 21:21 Troponin Ordered. EDMS 21:21 ECG WITH READING ER PHYS+CARDIAG ordered. EDMS 21:25 Vital Signs ordered. br1 21:25 BED REQUEST+ADM ordered. EDMS 21:26 -Blood Culture (Adults Only), peripheral from different site, or from device/port/PICC br1 etc. if present ordered. 21:27 -Blood Culture (Adults Only), peripheral from different site, or from device/port/PICC sew etc. if present complete. 21:27 -Blood Culture Ordered. EDMS 21:28 CT Chest Without Contrast Ordered. EDMS 21:29 BLOOD CULTURES Ordered. EDMS 21:32 -Influenza A&B Rapid Antigen - Nose Ordered. EDMS 21:38 BNP Ordered. EDMS 22:39 CBC with Diff Reviewed. br1 22:39 BMP Reviewed. br1 22:39 Troponin Reviewed. br1 22:39 BNP Reviewed. br1 22:39 -Influenza A&B Rapid Antigen - Nose Reviewed. br1 22:44 Admission / Observation Status ordered. EDMS 22:44 2 GRAM SODIUM DIET ordered. EDMS 22:45 COMPLETE BLOOD COUNT Ordered. EDMS 22:45 BASIC METABOLIC PROFILE Ordered. EDMS 22:45 SPUTUM CULTURE AND GRAM STAIN Ordered. EDMS 22:46 Financial registration complete. jpb 22:47 [place] [place] was scanned into [employer] and attached to record. jpb 22:59 LACTIC ACID LEVEL, LACTATE Ordered. EDMS 22:59 PSA FREE (INCLUDES TOTAL) Ordered. EDMS 23:01 URINALYSIS Ordered. EDMS 23:01 URINE CULTURE Ordered. EDMS 23:18 ARTERIAL BLOOD GAS Ordered. EDMS 23:29 CARDIAC MARKER PANEL Ordered. EDMS 23:29 C REACTIVE PROTEIN QUANTITATIV Ordered. EDMS 07/13 00:07 MRSA SCREEN Ordered. EDMS 07/14 08:15 T-Sheet-- Draft Copy was scanned into [employer] and attached to record. gb Signatures: Dispatcher [employer] EDRI QuesenLeatha Gramajo, RN RN daq Eva Garrido, Reg Reg gb Dillan Williamson MD MD br1 Chele Edouard Sarah sew Nunez, Nikkole,RN RN nn1 The chart was reviewed and I authenticate all verbal orders and agree with the evaluation and treatment provided.Corrections: (The following items were deleted from the chart) 07/12 21:21 21:20 Oxygen 2L via NC, titrate to maintain PO >95% ordered. br1 br1 23:27 22:45 CARDIAC MARKER PANEL ordered. EDMS EDMS 23:29 22:45 C REACTIVE PROTEIN QUANTITATIV ordered. EDMS EDMS 23:29 22:59 C REACTIVE PROTEIN QUANTITATIV ordered. EDMS EDMS Attachments: 22:47 [place] Payment Agreement jpb 07/14 08:15 T-Sheet-- Draft Copy gb Chart Complete MTDD
[2016-07-16 16:00] VITALS: BP 142/66
[2016-07-16 16:37] VITALS: BP 129/62
[2016-07-16] MEDS: OMEPRAZOLE 20 MG CAP PO SCH (16:54)
[2016-07-16] MEDS: ONDANSETRON 4MG/2ML VIAL (J2405) IV PRN (16:54)
[2016-07-16] MEDS: ACETAMINOPHEN TAB 650MG DOSE (2X325MG) PO PRN (16:54)
[2016-07-16] MEDS: oxyBUTYnin *DITROPAN XL* 5 MG TABCR PO SCH (21:23)
[2016-07-16 22:00] VITALS: BP 107/57
[2016-07-16] MEDS ORDERED: diphenhydrAMINE 25 MG CAP PO ONE (22:45)
[2016-07-16] MEDS ORDERED: predniSONE 20 MG TAB PO ONE (22:45)
--- NOTE | 2016-07-17 03:42 | IPN ---
DATE OF SERVICE: 07/15/2016 Mr. Mata is more energetic today. He says he is feeling little better. No chest pain, not particularly short of breath. Did tolerate his swallow evaluation yesterday. He shares with me that he is not convinced that he wants to continue with treatment for his prostate cancer. He is disappointed about the direction his health has taken. Is not sure how to talk with his about these issues. Temperature 96.4, pulse 89, respiratory rate 18, blood pressure 123/60, 97% on 2 liters. Intake and output (I and O) notable for a positive fluid balance of 1785. Weight 78.3 kg with a body mass index of 23.4. He is awake, slightly sad appearing, but appropriately interactive and engaged. Head is normocephalic. Mucous membranes moist. Neck supple. Breathing is symmetrical, coarse airway sounds throughout. No accessory muscle use. Speaking in complete sentences. Heart is in a regular rate and rhythm. Abdomen is soft, doughy, nontender. White cell count 7.5, hemoglobin 9.4, platelets 258. Potassium 2.9. Creatinine is 1.6. CRP is 13.8. My assessment is as follows: This is a 76-year-old with suspected aspiration pneumonia. Plan is as follows: 1. Aspiration pneumonia. Does have what is a relatively chronic right-sided effusion. He is improving symptomatically. He does also have a suspected lung mass on CT imaging. Planned for a PET scan as an outpatient. 2. Patient has acute kidney injury, with a creatinine of 1.6. Potassium is 2.9 and has already been repleted this morning. Will follow again tomorrow. 3. Patient had atrial fibrillation with RVR. Rate is well controlled. 4. Patient has prostate cancer with metastatic disease. He is unsure that he wants to continue with therapy and has requested discussion with Dr. Garvin once she becomes available. 5. Patient has a DO NOT RESUSCITATE/DO NOT INTUBATE.
[2016-07-17] MEDS: MEROPENEM INJ 2 GM in NS 100 ML IV SCH ×2 (04:28→17:38)
[2016-07-17] MEDS: METOPROLOL TART 25 MG TABLET PO SCH ×4 (05:39→23:38)
[2016-07-17] MEDS: SLF 3 ML SYR IV SCH ×3 (05:40→20:22)
[2016-07-17 05:58] LABS: MEAN CORPUSCULAR HEMOGLOBIN 33.8 pg (27.0-33.0); MEAN CORPUSCULAR HGB CONC 34.9 g/dl (32.0-36.5); MEAN CORPUSCULAR VOLUME 96.9 fl (80.0-96.0); RED CELL DISTRIBUTION WIDTH 13.7 % (11.5-14.5); WHITE BLOOD COUNT 7.4 K/mm3 (4.0-10.0)
[2016-07-17 06:16] LABS: CALCIUM LEVEL 6.1 MG/DL (8.8-10.2); CREATININE FOR GFR 1.56 MG/DL (0.70-1.30); GLOMERULAR FILTRATION RATE 46.1 (>42); POTASSIUM SERUM 4.1 MEQ/L (3.5-5.1)
[2016-07-17] MEDS: ENOXAPARIN 30 MG/0.3 ML SYR (J1650) SC SCH (09:46)
--- NOTE | 2016-07-17 10:13 | IPN ---
DATE: 07/16/2016 Mr. Mata is more energetic today. Says he is feeling a little better. Still worried about his future. No chest pain. He is worried because he thinks that he should be having chest pain. Temperature is 97.5, pulse 76, respiratory rate 20, blood pressure 112/77, 96% on 2 liters. Input and output notable for a positive fluid balance of 185. Head is normocephalic. Mucous membranes moist. Breathing is symmetrical, coarse airway sounds throughout. No accessory muscle use. Speaking in complete sentences. Heart is in a regular rate and rhythm. Abdomen is soft, nontender. White cell count is 7.4, hemoglobin 9.3, platelets of 233, potassium 3.5. ASSESSMENT: My assessment is as follows: This is a 76-year-old with suspected aspiration pneumonia. PLAN: 1. Suspected aspiration pneumonia. Continue broad spectrum antibiotics. Continues to improve. He does have a right-sided effusion. We will continue further care on the medical floor. 2. The patient has acute kidney injury, which has resolved to better than baseline. 3. Hypokalemia, has also resolved, as well as hypernatremia. 4. The patient has atrial fibrillation and had experienced rapid ventricular rate. Rate is well controlled currently. 5. The patient has a DO NOT RESUSCITATE , DO NOT INTUBATE. 6. The patient has prostate cancer and is interested in discussing his case with Dr. Garvin, if she becomes available during the hospitalization. [facility] CENTERFrank
[2016-07-17] MEDS: FERROUS SULFATE 325MG TAB PO SCH (12:14)
[2016-07-17] MEDS: K-PHOS ORIGINAL (POT.ACID PHOSPHATE) 500MG TAB PO SCH (12:14)
[2016-07-17] MEDS: FOLIC ACID 1 MG TAB PO SCH (12:14)
[2016-07-17 14:00] VITALS: BP 122/56
--- NOTE | 2016-07-17 15:12 | REP ---
Clinical: Fever. Technique: AP and lateral views. Comparison: Chest CT dated 07/12/2016. Findings: Bibasilar consolidations and/or pleural effusions are suspected and likely similar to CT dated 07/12/2016. Cardiac silhouette is upper limits of normal. No pneumothorax. Skeletal structures stable. Impression: Bibasilar pleural effusions and/or consolidations. Signed by Omar Szymanski MD 07/17/2016 03:04 P
[2016-07-17] MEDS: OMEPRAZOLE 20 MG CAP PO SCH (17:38)
--- NOTE | 2016-07-17 17:44 | IPN ---
DATE: 07/17/2015 SUBJECTIVE: The patient was febrile overnight. Did not have any specific complaints to go with that fever. No chest pain. No shortness of breath. OBJECTIVE: VITAL SIGNS: Temperature upon my exam most recently was 98.2, pulse 75, respiratory rate 16, blood pressure 115/55, 98% on two liters nasal cannula. Intake and output notable for negative fluid balance of minus 380, one bowel movement on the day prior to this note. Urinary output 1550. GENERAL: He is awake, appropriately interactive. is at bedside. Mucous membranes moist. NECK: Supple. LUNGS: Breathing is symmetrical. Diminished throughout with coarse upper airway sounds. HEART: Distant sounding normal S1, S2. ABDOMEN: Soft, doughy, nontender. LABORATORY DATA: White blood cell count 7.4, hemoglobin 10, platelets of 249. Sodium 144, potassium 4.1, carbon dioxide is 16 trending downward, BUN 24, creatinine 1.56. MICROBIOLOGY: Repeat blood cultures are pending. IMAGING: Repeat chest x-ray shows bibasilar pleural effusions and consolidations suspected to be unchanged. ASSESSMENT: A 76-year-old with suspected aspiration pneumonia. PLAN: 1. The patient has suspected aspiration pneumonia. Continue broad-spectrum antibiotics. Continue further workup including perhaps thoracentesis, given his continued effusions and pneumonia. Unfortunately, today he received his Lovenox. Will drain tomorrow. Continue current care. Await culture results. 2. The patient has acute kidney injury which is somewhat worse than baseline. 3. The patient has atrial fibrillation and had experienced rapid rate. Rate is currently controlled on current beta blockade. He is not anticoagulated. 4. The patient is DO NOT RESUSCITATE (DNR), DO NOT INTUBATE (DNI). 5. The patient has prostate cancer and is planned to discuss his case today with Dr. Garvin.
--- NOTE | 2016-07-17 19:53 | CR ---
ONCOLOGY INPATIENT CONSULTATION: 07/17/2016 REFERRING PHYSICIAN: Theron Berrios MD Mr. 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 I was asked to consult regarding medical oncology management by Dr. Theron Berrios. Mr. Mata has most recently been on Abiraterone and low dose prednisone for non-metastatic castrate resistant prostate cancer. He began this in late summer. However, his PSA has not responded, and restaging scans recently demonstrated a new skeletal metastatic foci and a 3 cm chest mass. The current plan has been for him to have a PET scan to evaluate the mass and any localized adenopathy and pursue tissue biopsy, however, in the interval he was admitted to the hospital with respiratory distress, found to have bilateral pleural consolidations/pneumonia. Of note as well he was recently started on denosumab for his skeletal metastases, this was complicated by hypocalcemia requiring calcium resuscitation and my plan would have been to discontinue denosumab and possibly renally dose Zometa in the future. On admission, WBC count was 13.9, now normal, hemoglobin 9.7, now 10, platelets normal. Abdominal wound culture has grown out Serratia, Enterococcus faecalis for which the patient is on contact isolation. He is overdue for chronic indwelling suprapubic catheter change. Blood cultures today have been negative, Methicillin-resistant Staphylococcus aureus (MRSA) screen was negative. Mr. Mata is seen at the bedside accompanied by his and a friend. He is his usual very low moore self. We discussed the current plan which was for a thoracentesis. This is desirable both for palliative reasons and diagnostic reasons. If he does have malignant pleural effusions it would quite significantly change his overall clinical picture, which to date has involved only oligometastatic foci of his prostate cancer involving a few ribs and spine. It is unclear whether the chest mass is part of his prostate cancer or a second primary malignancy. I spoke with Regan and his today about his overall prognosis and picture. We had anticipated starting him on single agent Taxotere chemotherapy for progressive prostate cancer unresponsive to endocrine interventions. However, his performance status currently is 3 to 4, while infected we would not start chemotherapy, and overall the rate at which he has clinically declined is fairly rapid, auguring generally a poor prognosis, though he is asymptomatic in terms of his skeletal metastases. We talked about thinking about Hospice care rather than trying additional treatments. Regan is clear he does not want to try chemotherapy. An untried oral alternative would be Enzalutamide, another antiandrogen based treatment. Overall, my clinical suspicion has been this would be of low impact given his completely refractory response to Abiraterone. Regan does not want to make any final decisions now, he is DO NOT RESUSCITATE (DNR) while in inpatient, he would like to know the results of fluid cytology from the lungs and this is reasonable prognostically. IMPRESSION: Progressive castrate resistant prostate cancer, now with skeletal metastases, bilateral pleural effusions versus pneumonia, a 3 cm chest mass of uncertain etiology likely prostate metastasis though possibly second malignancy. RECOMMENDATIONS: 1. I agree with thoracentesis, both palliative and diagnostic and fluid should be sent for cytology. 2. Regan is currently off abiraterone and while acutely ill inpatient this is reasonable. He could resume it as he wishes on discharge. 3. We agreed today that there is no reason to nunes into additional scans such as PET scan and for the time being chemotherapy would be indefinitely postponed. Once Regan is out of the hospital and we have further diagnostic information we can discuss in detail his overall prognosis and whether or not additional treatment for his prostate cancer makes sense or whether a purely palliative/Hospice approach is more appropriate. He was involved in this entire discussion tonight along with his . Time statement: Overall 25 minutes was spent [id number] with the patient, the entirety of which is involved in counseling and coordination of care. I will continue to follow the patient intermittently while hospitalized. ISELA
[2016-07-17] MEDS: oxyBUTYnin *DITROPAN XL* 5 MG TABCR PO SCH (20:22)
[2016-07-17 22:00] VITALS: BP 115/59
--- NOTE | 2016-07-18 00:02 | PHACANCOPD ---
PHARMACY VANCOMYCIN DOSING Pt Demographics Demographics Patient Age:76 , Weight:75.800 , Gender: male Adjusted Body Weight Date: 07/13/16, Adjusted Body Weight: [78.7] Kg Vancomycin Vancomycin Target Ranges: 15-20 mcg/ml Vancomycin Load Y/N: Yes Load Dose Date Time Vancomycin Load Dose: 1500MG Date: 07-13 Time: 0200 Vancomycin Dose Date: 07/15/16. Current Vancomycin Dose: [1000MG Q24H] Intermittent Dosing?: No Labs Micro Microbiology 07/17/16 Blood Culture, Received Pending 07/17/16 Blood Culture, Received Pending 07/13/16 Blood Culture - Preliminary, Resulted No Growth after 72 hours. All specime... 07/12/16 Blood Culture - Final, Complete NO GROWTH AFTER 5 DAYS 07/13/16 MRSA Screen - Final, Complete 07/12/16 Influenza Virus Type A Antigen - Final, Complete 07/12/16 Influenza Virus Type B Antigen - Final, Complete 07/13/16 Urine Culture - Final, Complete 07/13/16 Wound Culture - Final, Complete Enterococcus Faecalis Aerococcus Urinae Serratia Marcescens Corynebacterium Species Creatinine Clearance Date:07/13/16. Creatinine Clearance: [30.5]. Assessment and Plan Maintaining Current Dose?: Yes Reason for dose change: No Dose Change Pharmacist Note Pharmacist Note Date: 07/17/16. Pharmacist note:VANCOMYCIN TROUCH DRAWN @2300 THIS EVENING REPORTED 19.4(this level was drawn 3 hours early for patient convenience- Will continue current vancomycin regimen and continue to monitor Date: 07/15/16. Pharmacist note:Trough of 17.3 is within target range. will continue current dosing. Will continue to monitor and make adjustments as needed. RAJEEV VARELA PHARMACY Jul 18, 2016 00:02
[2016-07-18] MEDS: VANCOMYCIN HCL 1,000 MG, VIAL MATE ADAPTER 1 EACH in D5W 250 ML IV SCH (02:06)
[2016-07-18] MEDS: MEROPENEM INJ 2 GM in NS 100 ML IV SCH ×2 (03:33→16:37)
[2016-07-18] MEDS: SLF 3 ML SYR IV SCH ×3 (05:27→21:33)
[2016-07-18] MEDS: METOPROLOL TART 25 MG TABLET PO SCH ×4 (05:27→23:46)
[2016-07-18 06:00] VITALS: BP 105/57
[2016-07-18 06:50] LABS: MEAN CORPUSCULAR HEMOGLOBIN 33.8 pg (27.0-33.0); MEAN CORPUSCULAR HGB CONC 34.4 g/dl (32.0-36.5); MEAN CORPUSCULAR VOLUME 98.3 fl (80.0-96.0); RED CELL DISTRIBUTION WIDTH 13.9 % (11.5-14.5); WHITE BLOOD COUNT 8.5 K/mm3 (4.0-10.0)
[2016-07-18 07:30] LABS: CALCIUM LEVEL 6.1 MG/DL (8.8-10.2); CREATININE FOR GFR 1.78 MG/DL (0.70-1.30); GLOMERULAR FILTRATION RATE 39.5 (>42); POTASSIUM SERUM 3.5 MEQ/L (3.5-5.1)
[2016-07-18 13:15] VITALS: BP 110/58
[2016-07-18] MEDS: K-PHOS ORIGINAL (POT.ACID PHOSPHATE) 500MG TAB PO SCH (13:28)
[2016-07-18] MEDS: FERROUS SULFATE 325MG TAB PO SCH (13:29)
[2016-07-18] MEDS: FOLIC ACID 1 MG TAB PO SCH (13:29)
[2016-07-18 14:24] LABS: RBC PLEURAL FLUID < 10 (<10mm3 cells/uL); TNC PLEURAL FLUID 589 cells/uL (0-20)
[2016-07-18 14:26] LABS: BF DIFF IF INDICATED? YES (NO)
[2016-07-18 14:49] LABS: CC BF DIFF EXAM CYTOCENTRIFUGE
[2016-07-18 14:55] LABS: LDH, BODY FLUID 155 U/L (NOT ESTABLISHED); TOTAL PROTEIN, BODY FLUID 2.3 G/DL (NOT ESTABLISHED)
--- NOTE | 2016-07-18 14:56 | IPNPDOC ---
Date of Service/Time Jul 18, 2016 Progress Note SUBJECTIVE: Patient is a 76-year-old male with suspected aspiration pneumonia. Patient was examined at bedside and found reclining in bed at 30 degrees. No acute events or fever overnight. He has a positive attitude today and remains very optimistic. He admits to feeling stronger everyday. Patient continues to tolerate food. Patient is unable to ambulate without assistance at this time. Denies chest pain, shortness of breath, nausea, vomiting, diarrhea. Patient admits to coughing but without sputum production. Patient's wanted to speak with Dr. Shepherd in regards to his scheduled ureteric stent replacement on 07/23/16. OBJECTIVE: PHYSICAL EXAMINATION: GENERAL: NAD. A&OX3. HEENT: Atraumatic. Normocephalic.EOMI. PERRLA. No lymphadenopathy. Neck supple. Mucous membranes moist. CARDIOVASCULAR: Irregularly irregular. Normal S1 and S2. No murmurs, rubs or gallops. RESPIRATORY: Bilaterally crackles at lung bases. ABDOMINAL: Soft, non-tender. Normoactive bowel sounds. No masses, peritoneal signs or ecchymosis. EXTREMITIES: No cyanosis, pallor or edema. NEUROLOGICAL: CN2-12 intact. LABORATORY DATA: Please see below. MICROBIOLOGY: Please see below. IMAGING: Chest X-Ray on 07/17/16 revealed bilateral pleural effusions. DVT prophylaxis ordered?: Lovenox stopped on 07/17/16 for scheduled thoracentesis on 07/18/16. ASSESSMENT AND PLAN: This is a 76-year-old male with past medical history of GERD, prostate cancer with metastasis to multiple sites, atrial fibrillation with RVR presenting with suspected aspiration pneumonia. PROBLEMS: 1. Aspiration pneumonia. Chest X-Ray revealed bilateral pleural effusions. CT revealed a suspected lung mass. We will continue broad spectrum antibiotics meropenem and vancomycin. A diagnostic thoracentesis will be performed today to determine etiology (infectious vs. malignant) of pleural effusions. Awaiting culture results of blood and urine. 2. Acute Kidney Injury. Creatinine is 1.78 today which is somewhat worse than baseline. Will continue to monitor. 3. Atrial Fibrillation. Patient is rate controlled with beta blockade. Currently not anticoagulated. 4. Patient is DNR/DNI 5. Hypokalemia. Resolved 6. Prostate Cancer with multiple metastasis. Dr. Garvin has discussed with the patient the possibility of continuing the chemotherapy regiment after the infection has resolved if the patient would like to do so. After discharge, the prospect of a staging PET scan will also be discussed. PFS was also consulted for evaluation for a home health aide as the has expressed a concern with the ability to fully meet his needs at home. VS, I&O, 24H, Fishbone VS, I&O, 24H, Fishbone Vital Signs Date Time Temp Pulse Resp B/P Pulse Ox O2 Delivery O2 Flow Rate FiO2 07/18/16 06:00 98.4 68 20 105/57 99 Nasal Cannula 2.0 I&O- Last 24 Hours up to 6 AM 07/18/16 06:00 Intake Total 1250 ml Output Total 1150 ml Balance 100 ml Laboratory Tests 2 07/17/16 23:21: Vancomycin Level Trough 19.4 07/18/16 06:21: Anion Gap 9, Blood Urea Nitrogen 36H, Creatinine 1.78H, Sodium Level 144, Potassium Level 3.5, Chloride Level 114H, Carbon Dioxide Level 21, Calcium Level 6.1L, Glomerular Filtration Rate 39.5L Laboratory Tests 07/18/16 06:21 Calcium Level 6.1 L, Red Blood Count 2.84 L, Mean Corpuscular Volume 98.3 H, Mean Corpuscular Hemoglobin 33.8 H, Mean Corpuscular Hemoglobin Concent 34.4, Red Cell Distribution Width 13.9 Microbiology 07/17/16 Blood Culture, Received Pending 07/17/16 Blood Culture, Received Pending 07/13/16 Blood Culture - Final, Complete NO GROWTH AFTER 5 DAYS 07/12/16 Blood Culture - Final, Complete NO GROWTH AFTER 5 DAYS 07/13/16 MRSA Screen - Final, Complete 07/12/16 Influenza Virus Type A Antigen - Final, Complete 07/12/16 Influenza Virus Type B Antigen - Final, Complete 07/13/16 Urine Culture - Final, Complete 07/13/16 Wound Culture - Final, Complete Enterococcus Faecalis Aerococcus Urinae Serratia Marcescens Corynebacterium Species MELISSA OSPINA DO Jul 18, 2016 09:12
--- NOTE | 2016-07-18 16:31 | REP ---
Chest x-ray: Two views. History: Post thoracentesis. Comparison study earlier on the same date. The patient is status post right thoracentesis. Findings: The right pleural angle blunting is much improved. Aeration is improved in the right chest. There is no evidence of pneumothorax or other complication. Oxygen delivery tubing is seen. Impression: Improved right pleural effusion. Signed by Anupam Hoover MD 07/19/2016 07:59 A
--- NOTE | 2016-07-18 17:07 | REP ---
ULTRASOUND GUIDED RIGHT THORACENTESIS: The procedure was performed under the direct supervision of Dr. Hoover. The risks and benefits of the procedure were explained to the patient and informed consent was obtained. The right pleural effusion was localized using ultrasound guidance. The skin was prepped and draped in a sterile fashion. 1% lidocaine was used as a local anesthetic. An #8-Sinhala [id number] catheter was inserted using trocar technique. 515 mL of yellow fluid was withdrawn and sent to the lab. The patient tolerated the procedure well and there were no immediate complications. Reviewed by ORIANA Watson 07/19/2016 08:32 AEdited and Signed by Anupam Hoover MD 07/19/2016 02:56 P
[2016-07-18] MEDS: OMEPRAZOLE 20 MG CAP PO SCH (17:43)
[2016-07-18] MEDS: ONDANSETRON 4MG/2ML VIAL (J2405) IV PRN (17:47)
[2016-07-18] MEDS: ACETAMINOPHEN TAB 650MG DOSE (2X325MG) PO PRN (17:47)
[2016-07-18] MEDS: oxyBUTYnin *DITROPAN XL* 5 MG TABCR PO SCH (20:06)
[2016-07-18 22:00] VITALS: BP 103/55
[2016-07-19] MEDS: VANCOMYCIN HCL 1,000 MG, VIAL MATE ADAPTER 1 EACH in D5W 250 ML IV SCH (01:54)
[2016-07-19] MEDS: MEROPENEM INJ 2 GM in NS 100 ML IV SCH ×2 (04:08→16:07)
[2016-07-19] MEDS: SLF 3 ML SYR IV SCH ×3 (05:54→21:15)
[2016-07-19] MEDS: METOPROLOL TART 25 MG TABLET PO SCH ×3 (05:54→18:00)
[2016-07-19 06:00] VITALS: BP 107/55
[2016-07-19 06:44] LABS: MEAN CORPUSCULAR HEMOGLOBIN 34.2 pg (27.0-33.0); MEAN CORPUSCULAR HGB CONC 34.9 g/dl (32.0-36.5); MEAN CORPUSCULAR VOLUME 98.1 fl (80.0-96.0); RED CELL DISTRIBUTION WIDTH 13.8 % (11.5-14.5); WHITE BLOOD COUNT 5.2 K/mm3 (4.0-10.0)
[2016-07-19 07:00] LABS: CREATININE FOR GFR 1.52 MG/DL (0.70-1.30); GLOMERULAR FILTRATION RATE 47.5 (>42); POTASSIUM SERUM 3.8 MEQ/L (3.5-5.1)
[2016-07-19 08:55] LABS: ALBUMIN 1.5 GM/DL (3.2-5.2); BILIRUBIN,TOTAL 0.4 MG/DL (0.2-1.0)
[2016-07-19 08:59] LABS: ALBUMIN/GLOBULIN RATIO 0.39 (1.00-1.93); TOTAL PROTEIN 5.3 GM/DL (6.4-8.2)
[2016-07-19] MEDS: ENOXAPARIN 30 MG/0.3 ML SYR (J1650) SC SCH (09:09)
[2016-07-19] MEDS: K-PHOS ORIGINAL (POT.ACID PHOSPHATE) 500MG TAB PO SCH (12:05)
[2016-07-19] MEDS: FERROUS SULFATE 325MG TAB PO SCH (12:05)
[2016-07-19] MEDS: FOLIC ACID 1 MG TAB PO SCH (12:05)
--- NOTE | 2016-07-19 12:25 | IPNPDOC ---
Date of Service/Time Jul 19, 2016 Progress Note SUBJECTIVE: Patient is a 76-year-old male with suspected aspiration pneumonia. Patient was examined at bedside and found sitting in bed at 30 degrees. His mood remains to be positive today and was conversing well in a jokingly manner. No acute events overnight. Tolerating food well and is not yet ambulating. Denies nausea, vomiting, diarrhea, shortness of breath and chest pain. Admits to feeling some pain where the thoracentesis was done but still is able to take full breaths without difficulty. OBJECTIVE: PHYSICAL EXAMINATION: GENERAL: NAD. A&Ox3. HEENT: Normocephalic, atraumatic. Mucous membranes moist. Neck supple. EOMI. CARDIOVASCULAR: Irregularly irregular. Normal S1 and S2. No murmurs, rubs or gallops. RESPIRATORY: Clear to auscultation. No wheezes, rales or rhonchi. ABDOMINAL: Soft, non-tender. No peritoneal signs, masses or ecchymosis. EXTREMITIES: No cyanosis, pallor or edema. IMAGING: Chest CT and X-Ray demonstrated bilateral pleural effusions. DVT prophylaxis ordered?: Lovenox still on hold from paracentesis ASSESSMENT AND PLAN: This is a 76-year-old male with multiple comorbidities presenting with suspected aspiration pneumonia. PROBLEMS: 1. Aspiration pneumonia vs. prostate metastasis. Chest x-ray and CT showed bilateral pleural effusions. Patient has no elevated white count today. Continue broad spectrum antibiotics meropenem and vancomycin. Thoracentesis revealed an exudative pleural fluid without an elevated WBC. LDH of pleural fluid was 155. LDH of serum was 245. With an exudative pleural fluid, this could either be malignancy or infectious. Less likely to be infectious in etiology because of normal WBC in pleural fluid. More likely to be prostate metastasis because of history of treatment resistant prostate cancer and an elevated total nucleated cell count on the pleural fluid. Awaiting for pathology and micro results. 2. Acute Kidney Injury. Creatinine 1.52 today which is around baseline. Continue to monitor. 3. Atrial Fibrillation. Rate controlled with beta blockade. Lovenox can be restarted. 4. Patient DNR/DNI 5. Hypokalemia. Resolved 6. Prostate Cancer with metastasis. Patient is being followed by Dr. Garvin and will be seen in the outpatient setting in regards to continuing treatment after discharge. VS, I&O, 24H, Fishbone VS, I&O, 24H, Fishbone Vital Signs Date Time Temp Pulse Resp B/P Pulse Ox O2 Delivery O2 Flow Rate FiO2 07/19/16 06:00 97.3 77 20 107/55 98 Nasal Cannula 2.0 I&O- Last 24 Hours up to 6 AM 07/19/16 05:59 Intake Total 1610 ml Output Total 1075 ml Balance 535 ml Laboratory Tests 2 07/18/16 12:35: Body Fluid Albumin 1.0, Body Fluid Amylase 17, Body Fluid Cholesterol < 50, Body Fluid Eosinophils 2, Body Fluid Glucose 90, Body Fluid Lactate Dehydrogenase 155, Body Fluid Lymphocytes 50, Body Fluid Monocytes/Macrophages 25, Body Fluid Neutrophils 23, Body Fluid Source PLEURAL, Body Fluid Total Protein 2.3, Body Fluid Triglycerides 32, Body Fluid pH 7.556, Pleural Fluid Appearance CLEAR, Pleural Fluid Color PALE YELLOW, Pleural Fluid RBC (Auto) < 10 , Pleural Fluid Source PLEURAL, Pleural Fluid Total Nucleated Cells 589H 07/19/16 06:18: Blood Urea Nitrogen 33H, Creatinine 1.52H, Sodium Level 145, Potassium Level 3.8 , Chloride Level 114H, Carbon Dioxide Level 23, Calcium Level 6.0L, Aspartate Amino Transf (AST/SGOT) 28, Alanine Aminotransferase (ALT/SGPT) 15, Alkaline Phosphatase 121H, Total Bilirubin 0.4, Total Protein 5.3L, Albumin 1.5L, Albumin /Globulin Ratio 0.39L, Anion Gap 8, Glomerular Filtration Rate 47.5 Laboratory Tests 07/19/16 06:18 Calcium Level 6.0 L, Aspartate Amino Transf (AST/SGOT) 28, Alanine Aminotransferase (ALT/SGPT) 15, Alkaline Phosphatase 121 H, Total Bilirubin 0.4 , Total Protein 5.3 L, Albumin 1.5 L, Red Blood Count 2.91 L, Mean Corpuscular Volume 98.1 H, Mean Corpuscular Hemoglobin 34.2 H, Mean Corpuscular Hemoglobin Concent 34.9, Red Cell Distribution Width 13.8 Microbiology 07/17/16 Blood Culture - Preliminary, Resulted No growth after 24 hours . All specim... 07/17/16 Blood Culture - Preliminary, Resulted No growth after 24 hours . All specim... 07/13/16 Blood Culture - Final, Complete NO GROWTH AFTER 5 DAYS 07/12/16 Blood Culture - Final, Complete NO GROWTH AFTER 5 DAYS 07/18/16 Acid Fast Stain, Received Pending 07/18/16 Mycobacterial Culture, Received Pending 07/18/16 Fungal Smear, Received Pending 07/18/16 Fungal Culture, Received Pending 07/18/16 Gram Stain - Final, Resulted 07/18/16 Anaerobic Culture, Resulted Pending 07/18/16 Body Fluid Culture, Received Pending 07/13/16 MRSA Screen - Final, Complete 07/12/16 Influenza Virus Type A Antigen - Final, Complete 07/12/16 Influenza Virus Type B Antigen - Final, Complete 07/13/16 Urine Culture - Final, Complete 07/13/16 Wound Culture - Final, Complete Enterococcus Faecalis Aerococcus Urinae Serratia Marcescens Corynebacterium Species MELISSA OSPINA DO Jul 19, 2016 09:29
[2016-07-19 14:00] VITALS: BP 109/53
[2016-07-19] MEDS: OMEPRAZOLE 20 MG CAP PO SCH (18:39)
[2016-07-19] MEDS: oxyBUTYnin *DITROPAN XL* 5 MG TABCR PO SCH (21:14)
[2016-07-19 22:00] VITALS: BP 108/57
[2016-07-20] MEDS: METOPROLOL TART 25 MG TABLET PO SCH ×4 (00:40→17:07)
[2016-07-20] MEDS: VANCOMYCIN HCL 1,000 MG, VIAL MATE ADAPTER 1 EACH in D5W 250 ML IV SCH (01:45)
[2016-07-20] MEDS: MEROPENEM INJ 2 GM in NS 100 ML IV SCH ×2 (04:14→17:06)
[2016-07-20] MEDS: SLF 3 ML SYR IV SCH ×3 (05:02→20:29)
[2016-07-20 06:00] VITALS: BP 106/50
[2016-07-20 06:22] LABS: MEAN CORPUSCULAR HEMOGLOBIN 33.9 pg (27.0-33.0); MEAN CORPUSCULAR HGB CONC 34.9 g/dl (32.0-36.5); MEAN CORPUSCULAR VOLUME 97.1 fl (80.0-96.0); RED CELL DISTRIBUTION WIDTH 13.7 % (11.5-14.5); WHITE BLOOD COUNT 5.4 K/mm3 (4.0-10.0)
[2016-07-20 06:26] LABS: ALBUMIN 1.5 GM/DL (3.2-5.2); CREATININE FOR GFR 1.38 MG/DL (0.70-1.30); GLOMERULAR FILTRATION RATE 53.1 (>42); PHOSPHORUS LEVEL 2.8 MG/DL (2.5-4.9); POTASSIUM SERUM 3.8 MEQ/L (3.5-5.1)
[2016-07-20] MEDS: ENOXAPARIN 30 MG/0.3 ML SYR (J1650) SC SCH (10:10)
[2016-07-20] MEDS: K-PHOS ORIGINAL (POT.ACID PHOSPHATE) 500MG TAB PO SCH (12:51)
[2016-07-20] MEDS: FOLIC ACID 1 MG TAB PO SCH (12:51)
[2016-07-20] MEDS: FERROUS SULFATE 325MG TAB PO SCH (12:52)
[2016-07-20 14:00] VITALS: BP 132/59
[2016-07-20] MEDS: OMEPRAZOLE 20 MG CAP PO SCH (17:06)
--- NOTE | 2016-07-20 18:41 | IPNPDOC ---
Date of Service/Time Jul 20, 2016 Progress Note SUBJECTIVE: I explained to Mr. Mata and his that malignant cells were found in his pleural effusion. They had many questions about prognosis and treatment options, however, this is not my area of expertise and he recommended that they continue this conversation with their oncologist Dr. Garvin. They were kind enough understanding and grateful for the information. His only request at this time is that I offer offer up a prayer for him. OBJECTIVE: PHYSICAL EXAMINATION: GENERAL: He is his usual calm self. NAD. A&Ox3. HEENT: Normocephalic, atraumatic. Mucous membranes moist. Neck supple. EOMI. CARDIOVASCULAR: Irregularly irregular. Normal S1 and S2. No murmurs, rubs or gallops. RESPIRATORY: Clear to auscultation. No wheezes, rales or rhonchi. ABDOMINAL: Soft, non-tender. No peritoneal signs, masses or ecchymosis. EXTREMITIES: No cyanosis, pallor or edema. DVT prophylaxis ordered?: Lovenox ASSESSMENT AND PLAN: This is a 76-year-old male with multiple comorbidities with suspected aspiration pneumonia, and metastatic prostate cancer to multiple sites. PROBLEMS: 1. Aspiration pneumonia vs. prostate metastasis. Analysis of the pleural fluid did reveal cells consistent with metastatic adenocarcinoma of prostate origin. The results were discussed with the patient and his , who were very understanding. They were advised to discuss the details of further treatment options and prognosis with his oncologist Dr. Bharathi GREGORY. upon our initial conversation, it appears that he and his may be considering hospice at this time. 2. Acute Kidney Injury. Creatinine continues to be at baseline. 3. Atrial Fibrillation. Rate controlled with beta blockade. 4. Patient DNR/DNI 5. Hypokalemia. Resolved 6. Prostate Cancer with metastasis. Patient is being followed by Dr. Garvin and will be seen in the outpatient setting in regards to continuing treatment after discharge. VS, I&O, 24H, Fishbone VS, I&O, 24H, Fishbone Vital Signs Date Time Temp Pulse Resp B/P Pulse Ox O2 Delivery O2 Flow Rate FiO2 07/20/16 17:07 66 105/57 07/20/16 14:00 97.1 18 100 Nasal Cannula 2.0 I&O- Last 24 Hours up to 6 AM 07/20/16 06:00 Intake Total 770 ml Output Total 1225 ml Balance -455 ml Laboratory Tests 2 07/20/16 05:37: Albumin 1.5L, Blood Urea Nitrogen 31H, Creatinine 1.38H, Sodium Level 147H, Potassium Level 3.8, Chloride Level 116H, Carbon Dioxide Level 24, Anion Gap 7L , Calcium Level 6.0L, Glomerular Filtration Rate 53.1, Phosphorus Level 2.8 Laboratory Tests 07/20/16 05:37 Anion Gap 7 L, Red Blood Count 2.73 L, Mean Corpuscular Volume 97.1 H, Mean Corpuscular Hemoglobin 33.9 H, Mean Corpuscular Hemoglobin Concent 34.9, Red Cell Distribution Width 13.7 Microbiology 07/17/16 Blood Culture - Preliminary, Resulted No Growth after 72 hours. All specime... 07/17/16 Blood Culture - Preliminary, Resulted No Growth after 72 hours. All specime... 07/13/16 Blood Culture - Final, Complete NO GROWTH AFTER 5 DAYS 07/12/16 Blood Culture - Final, Complete NO GROWTH AFTER 5 DAYS 07/18/16 Acid Fast Stain, Received Pending 07/18/16 Mycobacterial Culture, Received Pending 07/18/16 Fungal Smear, Received Pending 07/18/16 Fungal Culture, Received Pending 07/18/16 Gram Stain - Final, Complete 07/18/16 Anaerobic Culture - Final, Complete 07/18/16 Body Fluid Culture - Final, Complete 07/13/16 MRSA Screen - Final, Complete 07/12/16 Influenza Virus Type A Antigen - Final, Complete 07/12/16 Influenza Virus Type B Antigen - Final, Complete 07/13/16 Urine Culture - Final, Complete 07/13/16 Wound Culture - Final, Complete Enterococcus Faecalis Aerococcus Urinae Serratia Marcescens Corynebacterium Species MELISSA OSPINA DO Jul 20, 2016 18:33
--- NOTE | 2016-07-20 19:35 | IPN ---
DATE: 07/20/2016 SUBJECTIVE: Mr. Mata is resting comfortably with his at the bedside. Unfortunately, thoracentesis shows malignant pleural effusion. This orders poorly for survival in this older man with Eastern Cooperative Oncology Group (ECOG) performance status 3-4. He has not been out of bed for more than a few steps for many days. He has had no response to anti-androgen systemic therapy for his castrate-resistant prostate cancer, and is not strong enough to start palliative chemotherapy. There is evidence of metastatic progression at a fairly rapid pace over the last six months, from no visible metastatic disease to new bone metastases, to a new 3 cm chest mass, to now malignant pleural effusion. I have spoken with both Regan and his recommending hospice care. They have discussed this extensively and he is very accepting of this as the best approach. He has no major symptoms except a slightly itchy rash involving his chest and arms and trunk. He does normally get a suprapubic catheter change once a month and a ureteral stent change once every 4-6 months. We spoke briefly about this. Continuing the suprapubic catheter change at least for a while may make some sense. This can be done by a nurse at home potentially; I advised against pursuing ureteral stent change now that he is going on hospice care. Similarly, I advised discontinuing abiraterone and prednisone.. We talked about how his pain would be managed as symptoms arise and I reassured the Hansa that oral medications, sometimes a patch, are usually adequate and hospice nurses and workers are good at troubleshooting and getting ahead of pain and I would be happy to service as hospice attending. Overall we had a good conversation. While he is currently on intravenous (IV) antibiotics for pneumonia, the patient should continue inpatient. I encouraged Mrs. Mata to speak with social work tomorrow to answer some of the logistic questions she has about hospital bed and so forth. At present, Mr. Mata is not much able to get up and out of bed though it is planned for him to try a walk out of bed tomorrow. 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 The patient would like to go on hospice care. This is eminently reasonable, and I strongly endorse it . I am happy service as hospice attending. I will continue to follow intermittently while he is hospitalized. MITCHELLD
[2016-07-20] MEDS: diphenhydrAMINE CREAM 30GM TOP PRN (20:28)
[2016-07-20] MEDS: oxyBUTYnin *DITROPAN XL* 5 MG TABCR PO SCH (20:28)
[2016-07-20 22:00] VITALS: BP 111/58
[2016-07-21] MEDS: METOPROLOL TART 25 MG TABLET PO SCH ×4 (00:10→18:09)
[2016-07-21] MEDS: VANCOMYCIN HCL 1,000 MG, VIAL MATE ADAPTER 1 EACH in D5W 250 ML IV SCH (02:15)
[2016-07-21] MEDS: MEROPENEM INJ 2 GM in NS 100 ML IV SCH (04:19)
[2016-07-21] MEDS: SLF 3 ML SYR IV SCH ×3 (05:25→21:14)
[2016-07-21 06:00] VITALS: BP 116/57
[2016-07-21 07:32] LABS: MEAN CORPUSCULAR HEMOGLOBIN 33.7 pg (27.0-33.0); MEAN CORPUSCULAR HGB CONC 34.5 g/dl (32.0-36.5); MEAN CORPUSCULAR VOLUME 97.5 fl (80.0-96.0); RED CELL DISTRIBUTION WIDTH 13.6 % (11.5-14.5); WHITE BLOOD COUNT 6.9 K/mm3 (4.0-10.0)
[2016-07-21 07:45] LABS: ALBUMIN 1.4 GM/DL (3.2-5.2); ANION GAP 7 MEQ/L (8-16); BLOOD UREA NITROGEN 25 MG/DL (7-18); CALCIUM LEVEL 6.2 MG/DL (8.8-10.2); CARBON DIOXIDE LEVEL 24 MEQ/L (21-32); CHLORIDE LEVEL 115 MEQ/L (98-107); CREATININE FOR GFR 1.23 MG/DL (0.70-1.30); GLOMERULAR FILTRATION RATE > 60.0 (>42); GLUCOSE, FASTING 91 MG/DL (83-110); PHOSPHORUS LEVEL 2.7 MG/DL (2.5-4.9); POTASSIUM SERUM 3.6 MEQ/L (3.5-5.1); SODIUM LEVEL 146 MEQ/L (136-145)
[2016-07-21] MEDS: ENOXAPARIN 30 MG/0.3 ML SYR (J1650) SC SCH (09:29)
[2016-07-21] MEDS: diphenhydrAMINE CREAM 30GM TOP PRN (09:29)
[2016-07-21] MEDS ORDERED: hydrOXYzine 10 MG TAB PO PRN (10:15)
[2016-07-21] MEDS ORDERED: EUCERIN 120GM CREAM TOP PRN (10:15)
[2016-07-21] MEDS: FOLIC ACID 1 MG TAB PO SCH (11:52)
[2016-07-21] MEDS: K-PHOS ORIGINAL (POT.ACID PHOSPHATE) 500MG TAB PO SCH (11:52)
[2016-07-21] MEDS: FERROUS SULFATE 325MG TAB PO SCH (11:52)
[2016-07-21 14:00] VITALS: BP 125/59
--- NOTE | 2016-07-21 15:39 | IPN ---
DATE OF SERVICE: 07/21/2016 Mr. Mata is lying comfortably in bed, speaking with the wafer fab operator sister and accompanied by his . He appears comfortable and says he is in no distress. He walked a few steps this morning with assistance. There has been some discussion of a PleurX catheter should his malignant effusion reaccumulate in the next few days. We talked about hospice again, his family has already been contacted about hospice at home and the plan for this seems to be underway. Currently he is not in active pain. IMPRESSION: Metastatic castrate resistant prostate cancer with bone and chest metastases, new fairly rapidly evolving malignant pleural effusion status post thoracentesis. Mr. Mata is off all prostate cancer treatment and electing for hospice care. Eastern Cooperative Oncology Group (ECOG) performance status III. I will continue to follow intermittently during his hospitalization. I will be happy to serve as his hospice attending. ISELA
--- NOTE | 2016-07-21 16:16 | IPNPDOC ---
Date of Service/Time Jul 21, 2016 Progress Note SUBJECTIVE: Patient is a 76-year-old male with metastatic prostate cancer to multiple sites. Patient was examined at bedside and found in bed at 0 degrees. No acute events overnight. He continues to remain positive, even after learning of his new found lung metastasis. He has come to terms with his condition and prognosis. Patient refused ambulation by PT this morning because of feeling too weak but wants to try again this afternoon. Hospice was discussed with patient and his . They both agreed that it is something that they want to pursue. The patient and his both preferred to speak with hospice care on Sunday because their daughter will be visiting at that time. The patient and his also requests that the suprapubic catheter be changed before they are discharged. The possibility of a palliative pleural catheter was discussed for recurrent pleural effusions. The patient expressed concern over whether it would be worth it based on his prognosis. Denies chest pain, shortness of breath , nausea, vomiting, diarrhea and cough. OBJECTIVE: PHYSICAL EXAMINATION: GENERAL: NAD. A&OX3. HEENT: Normocephalic, atraumatic. Mucous membranes moist. EOMI. No lymphadenopathy. Neck supple. CARDIOVASCULAR: Irregularly irregular. Normal S1 and S2. No murmurs, rubs or gallops. RESPIRATORY: Clear to auscultation. No rales, rhonchi or wheezes. ABDOMINAL: Soft, non-tender. Normoactive bowel sounds. No peritoneal signs, ecchymosis, or masses. EXTREMITIES: No cyanosis, pallor or edema. DVT prophylaxis ordered?: Yes, currently on Lovenox. ASSESSMENT AND PLAN: This is a 76-year-old male with suspected aspiration pneumonia and metastatic prostate cancer to multiple sites PROBLEMS: 1. Prostate metastasis. The patient and his both agreed that they want to receive hospice care. They prefer to speak with social media campaign manager on Sunday because their daughter will be visiting at that time. Dr. Garvin consulted with the patient and recommended that the suprapubic catheter be changed as scheduled but advised against pursuing ureteral stent change. Will discontinue antiobiotics at this time. Will also discontinue labwork and vital signs as well , we will continue with comfort medications and medications for his chronic conditions. 2. Acute Kidney Injury. Creatinine continues to be at baseline. 3. Atrial Fibrillation. Rate controlled with beta blockade. 4. Patient DNR/DNI 5. Hypokalemia. Resolved 6. Prostate Cancer with metastasis. Patient is being followed by Dr. Garvin and will be seen in the outpatient setting in regards to continuing treatment after discharge. VS, I&O, 24H, Fishbone VS, I&O, 24H, Fishbone Vital Signs Date Time Temp Pulse Resp B/P Pulse Ox O2 Delivery O2 Flow Rate FiO2 07/21/16 06:00 97.4 77 20 116/57 100 Nasal Cannula 2.0 I&O- Last 24 Hours up to 6 AM 07/21/16 06:00 Intake Total 1260 ml Output Total 1200 ml Balance 60 ml Laboratory Tests 2 07/21/16 07:06: Albumin 1.4L, Blood Urea Nitrogen 25H, Creatinine 1.23, Sodium Level 146H, Potassium Level 3.6, Chloride Level 115H, Carbon Dioxide Level 24, Anion Gap 7L , Calcium Level 6.2L, Glomerular Filtration Rate > 60.0, Phosphorus Level 2.7 Laboratory Tests 07/21/16 07:06 Anion Gap 7 L, Red Blood Count 2.73 L, Mean Corpuscular Volume 97.5 H, Mean Corpuscular Hemoglobin 33.7 H, Mean Corpuscular Hemoglobin Concent 34.5, Red Cell Distribution Width 13.6 Microbiology 07/17/16 Blood Culture - Preliminary, Resulted No Growth after 72 hours. All specime... 07/17/16 Blood Culture - Preliminary, Resulted No Growth after 72 hours. All specime... 07/13/16 Blood Culture - Final, Complete NO GROWTH AFTER 5 DAYS 07/12/16 Blood Culture - Final, Complete NO GROWTH AFTER 5 DAYS 07/18/16 Acid Fast Stain - Final, Resulted 07/18/16 Mycobacterial Culture, Resulted Pending 07/18/16 Fungal Smear - Final, Resulted 07/18/16 Fungal Culture, Resulted Pending 07/18/16 Gram Stain - Final, Complete 07/18/16 Anaerobic Culture - Final, Complete 07/18/16 Body Fluid Culture - Final, Complete 07/13/16 MRSA Screen - Final, Complete 07/12/16 Influenza Virus Type A Antigen - Final, Complete 07/12/16 Influenza Virus Type B Antigen - Final, Complete 07/13/16 Urine Culture - Final, Complete 07/13/16 Wound Culture - Final, Complete Enterococcus Faecalis Aerococcus Urinae Serratia Marcescens Corynebacterium Species MELISSA OSPINA DO Jul 21, 2016 09:02
[2016-07-21] MEDS: OMEPRAZOLE 20 MG CAP PO SCH (18:08)
[2016-07-21] MEDS: oxyBUTYnin *DITROPAN XL* 5 MG TABCR PO SCH (20:16)
[2016-07-22] VITALS: BP 116/50
[2016-07-22] MEDS: METOPROLOL TART 25 MG TABLET PO SCH ×4 (05:55→16:44)
[2016-07-22] MEDS: SLF 3 ML SYR IV SCH ×3 (05:56→20:51)
[2016-07-22 06:00] VITALS: BP 110/58
[2016-07-22] MEDS: ENOXAPARIN 30 MG/0.3 ML SYR (J1650) SC SCH (09:50)
[2016-07-22] MEDS: K-PHOS ORIGINAL (POT.ACID PHOSPHATE) 500MG TAB PO SCH (12:39)
--- NOTE | 2016-07-22 15:09 | IPNPDOC ---
Date/Time Seen The patient was seen on 07/22/16 at 14:55. Progress Note SUBJECTIVE: Mr. Mata and his have opted for hospice care at this time. We have discontinued all other lab work. Antibiotics and other nonessential medications were discontinued as well. They're attempting a progressive their home such that he may be able to have a hospital bed put in place. They're discussing the matters with PFS, hospice, and her medical oncologist Dr. Garvin. In speaking with him today, he continues to be in good spirits, he does not complain of any pain, shortness of breath, and his cough is also significantly improved. Otherwise, he has no specific complaints. OBJECTIVE: PHYSICAL EXAMINATION: GENERAL: NAD. A&OX3. HEENT: Normocephalic, atraumatic. Mucous membranes moist. EOMI. No lymphadenopathy. Neck supple. CARDIOVASCULAR: Irregularly irregular. Normal S1 and S2. No murmurs, rubs or gallops. RESPIRATORY: I believe he may have faint crackles at the bases bilaterally, the remainder of the lung weller are clear. ABDOMINAL: Soft, non-tender. Normoactive bowel sounds. No peritoneal signs, ecchymosis, or masses. Suprapubic catheter is in place EXTREMITIES: No cyanosis, pallor or edema. DVT prophylaxis ordered?: Yes, currently on Lovenox. ASSESSMENT: This is a 76-year-old male with metastatic prostate cancer to multiple sites, now including the lung. PROBLEM LIST: 1. Prostate cancer with metastasis. 2. Acute Kidney Injury. 3. Atrial Fibrillation. 4. Patient DNR/DNI 5. Hypokalemia. Resolved PLAN: Continue with palliative treatment. At this time he has no clinical indications that his pleural effusion has reaccumulated. He will be here through the weekend nonetheless, and if he develops any symptoms of shortness of breath, cough, or chest discomfort we can always repeat a chest x-ray to verify. Otherwise, continue with the planning for going home with hospice. VS, I&O, 24H, Fishbone VS, I&O, 24H, Fishbone Vital Signs Date Time Temp Pulse Resp B/P Pulse Ox O2 Delivery O2 Flow Rate FiO2 07/22/16 09:50 Room Air 07/22/16 06:00 110/58 07/22/16 05:55 64 07/21/16 14:00 96.3 20 97 2.0 MELISSA OSPINA DO Jul 22, 2016 15:09
[2016-07-22] MEDS: OMEPRAZOLE 20 MG CAP PO SCH (16:44)
[2016-07-22] MEDS: oxyBUTYnin *DITROPAN XL* 5 MG TABCR PO SCH (20:50)
[2016-07-23] MEDS: METOPROLOL TART 25 MG TABLET PO SCH ×5 (05:27→23:15)
[2016-07-23] MEDS: SLF 3 ML SYR IV SCH ×3 (05:27→20:31)
--- NOTE | 2016-07-23 10:56 | IPNPDOC ---
Assessment/Plan Date Seen The patient was seen on 07/23/16. Problems Problems: (1) Metastasis from malignant tumor of prostate Status: Acute Discussed With: Patient Problem Text: Prostate cancer s/p treatment found to have new malignant pleural effusions. Patient has opted for no further treatments. Plan Diet: Continue Current Activity: Continue Current Advance Directives: Comfort care Disposition Pending hospice evaluation and discharge home vs facility for hospice. Subjective Review of Systems CC/HPI The patient is a 76-year-old male admitted with a reason for visit of Metastasis From Malignant Tumor Of Prostate. Events since last encounter No complaints. 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 General: Denies: Chills, Fatigue, Malaise, Night Sweats, Normal Appetite, Other Symptoms, ROS Unobtainable Constitutional: Reports: Fatigue, Malaise, Denies: Chills, Fever, Lethargy, Night Sweats, Other, Weakness, Weight Loss Eyes: Denies: Conjunctivae inflammation, Eyelid inflammation, Other, Pain, Redness, Vision change ENT: Denies: Dysphagia, Ear Pain, Epistaxis, Head Aches, Other Symptoms, Post Nasal Drip, Sinus Congestion, Sore Throat Skin: Denies: Breakdown, Bruising, Dry, Itching, Jaundice, Lesions, Nail Changes, Other, Rash Pulmonary: Denies: Cough, Dyspnea, Other Symptoms, Pleuritic Chest Pain Cardiovascular: Denies: Chest Pain, Edema, Lt Headedness, Orthopnea, Other Symptoms, Palpitations, Paroxysmal Noc. Dyspnea Gastrointestinal: Denies: Abdominal Pain, Constipation, Diarrhea, Hematochezia , Melena, Nausea, Other Symptoms, Vomiting Genitourinary: Denies: Dysuria, Frequency, Hematuria, Incontinence, Other Symptoms, Retention Objective Vital Signs/I&O Vital Signs Date Time Temp Pulse Resp B/P Pulse Ox O2 Delivery O2 Flow Rate FiO2 07/23/16 05:27 86 112/50 07/23/16 00:28 Room Air 07/21/16 14:00 96.3 20 97 2.0 I&O- Last 24 Hours up to 6 AM 07/23/16 06:00 Intake Total 1260 ml Output Total 875 ml Balance 385 ml Laboratory Data Microbiology Microbiology 07/17/16 Blood Culture - Final, Complete NO GROWTH AFTER 5 DAYS 07/17/16 Blood Culture - Final, Complete NO GROWTH AFTER 5 DAYS 07/13/16 Blood Culture - Final, Complete NO GROWTH AFTER 5 DAYS 07/18/16 Acid Fast Stain - Final, Resulted 07/18/16 Mycobacterial Culture, Resulted Pending 07/18/16 Fungal Smear - Final, Resulted 07/18/16 Fungal Culture, Resulted Pending 07/18/16 Gram Stain - Final, Complete 07/18/16 Anaerobic Culture - Final, Complete 07/18/16 Body Fluid Culture - Final, Complete 07/13/16 MRSA Screen - Final, Complete 07/13/16 Urine Culture - Final, Complete 07/13/16 Wound Culture - Final, Complete Enterococcus Faecalis Aerococcus Urinae Serratia Marcescens Corynebacterium Species ALEX PIERRE MD Jul 23, 2016 10:56
[2016-07-23] MEDS: K-PHOS ORIGINAL (POT.ACID PHOSPHATE) 500MG TAB PO SCH (12:47)
[2016-07-23] MEDS: OMEPRAZOLE 20 MG CAP PO SCH (17:26)
[2016-07-23] MEDS: oxyBUTYnin *DITROPAN XL* 5 MG TABCR PO SCH (20:31)
[2016-07-24] MEDS: METOPROLOL TART 25 MG TABLET PO SCH ×3 (05:56→18:29)
[2016-07-24] MEDS: SLF 3 ML SYR IV SCH (05:56)
[2016-07-24] MEDS: K-PHOS ORIGINAL (POT.ACID PHOSPHATE) 500MG TAB PO SCH (12:20)
[2016-07-24] MEDS: OMEPRAZOLE 20 MG CAP PO SCH (18:29)
--- NOTE | 2016-07-24 20:20 | IPNPDOC ---
Date/Time Seen The patient was seen on 07/24/16 at 20:16. Progress Note SUBJECTIVE: Mr. Mata is once again in good spirits. He has no focal complaints at this time. He does have a slight cough with no sputum production, however it is no worse than usual. He also does have some mild itching, however he reports that the Eucerin cream helps quite a bit. OBJECTIVE: PHYSICAL EXAMINATION: GENERAL: NAD. A&OX3. HEENT: Normocephalic, atraumatic. Mucous membranes moist. EOMI. No lymphadenopathy. Neck supple. CARDIOVASCULAR: Irregularly irregular. Normal S1 and S2. No murmurs, rubs or gallops. RESPIRATORY: Continues to have faint crackles at the bases bilaterally, however they do not appear to be worse from prior. Otherwise lung weller are clear. ABDOMINAL: Soft, non-tender. Normoactive bowel sounds. No peritoneal signs, ecchymosis, or masses. Suprapubic catheter is in place, draining pale yellow urine EXTREMITIES: No cyanosis, pallor or edema. DVT prophylaxis ordered?: Yes, currently on Lovenox. ASSESSMENT: This is a 76-year-old male with metastatic prostate cancer to multiple sites, now including the lung. PROBLEM LIST: 1. Prostate cancer with metastasis. 2. Acute Kidney Injury. 3. Atrial Fibrillation. 4. Patient DNR/DNI 5. Hypokalemia. Resolved PLAN: Continue with palliative treatment. Waiting for all the arrangements to be made for him to be transferred home with hospice. VS, I&O, 24H, Fishbone VS, I&O, 24H, Fishbone Vital Signs Date Time Temp Pulse Resp B/P Pulse Ox O2 Delivery O2 Flow Rate FiO2 07/24/16 18:29 71 112/57 07/24/16 09:00 Room Air 07/21/16 14:00 96.3 20 97 2.0 I&O- Last 24 Hours up to 6 AM 07/24/16 06:00 Intake Total 1240 ml Output Total 1300 ml Balance -60 ml Microbiology 07/17/16 Blood Culture - Final, Complete NO GROWTH AFTER 5 DAYS 07/17/16 Blood Culture - Final, Complete NO GROWTH AFTER 5 DAYS 07/18/16 Acid Fast Stain - Final, Resulted 07/18/16 Mycobacterial Culture, Resulted Pending 07/18/16 Fungal Smear - Final, Resulted 07/18/16 Fungal Culture, Resulted Pending 07/18/16 Gram Stain - Final, Complete 07/18/16 Anaerobic Culture - Final, Complete 07/18/16 Body Fluid Culture - Final, Complete GME ATTESTATION GME ATTESTATION My preceptor for this patient encounter was physically present in the building during the encounter and was fully available. As needed, all aspects of the patient interview, examination, medical decision making process, and medical care plan development were reviewed and approved by the preceptor. Preceptor is aware and concurs with the plan as stated in the body of this note and will attest to such by his/her cosignature. MELISSA OSPINA DO Jul 24, 2016 20:20
[2016-07-24] MEDS: oxyBUTYnin *DITROPAN XL* 5 MG TABCR PO SCH (21:08)
[2016-07-25] VITALS: BP 98/44
[2016-07-25 06:00] VITALS: BP 102/58
[2016-07-25] MEDS: METOPROLOL TART 25 MG TABLET PO SCH ×4 (06:00→17:29)
--- NOTE | 2016-07-25 10:10 | REP ---
PORTABLE CHEST X-RAY: Single view. HISTORY: Worsening shortness of breath. Status post drainage of malignant pleural effusion. Comparison study July 18, 2016. FINDINGS: There is a little fissural thickening in the minor fissure. Some slight blunting of the right lateral pleural angle may indicate re-accumulation of a small quantity of right pleural fluid. No infiltrate or atelectasis is seen. Left lung remains clear. Heart is not enlarged. IMPRESSION: Small amount of right pleural fluid suspected. Signed by Anupam Hoover MD 07/25/2016 02:31 P
[2016-07-25] MEDS: K-PHOS ORIGINAL (POT.ACID PHOSPHATE) 500MG TAB PO SCH (12:25)
[2016-07-25] MEDS: OMEPRAZOLE 20 MG CAP PO SCH (17:29)
--- NOTE | 2016-07-25 18:43 | IPNPDOC ---
Date/Time Seen The patient was seen on 07/25/16 at 10:16. Progress Note SUBJECTIVE: Mr. Mata is is accompanied in the room by his and daughter. It appears that they have an appointment scheduled for this morning to speak with hospice about all of the necessary arrangements for going home. Mr. Mata requests that he be seen by physical therapy again as he is feeling a little bit better and would like to attempt to walk today with their assistance. The only other request that he has is that we change his suprapubic catheter prior to his departure. Otherwise, upon questioning, he does think that perhaps he is a little bit more short of breath today, he is unsure as to whether this is decompensation from being in bed for multiple weeks, which is why he would like to attempt to walk again today. He also continues to have a small cough, he cannot quantify whether it is better or worse today. OBJECTIVE: PHYSICAL EXAMINATION: GENERAL: NAD. A&OX3. HEENT: Normocephalic, atraumatic. Mucous membranes moist. EOMI. No lymphadenopathy. Neck supple. CARDIOVASCULAR: Irregularly irregular. Normal S1 and S2. No murmurs, rubs or gallops. RESPIRATORY: Once again, faint crackles at the bases bilaterally, it does not appear to be any worse than prior. Otherwise lung weller are clear. ABDOMINAL: Soft, non-tender. Normoactive bowel sounds. No peritoneal signs, ecchymosis, or masses. Suprapubic catheter is in place, draining pale yellow urine EXTREMITIES: No cyanosis, pallor or edema. DVT prophylaxis ordered?: Yes, currently on Lovenox. ASSESSMENT: This is a 76-year-old male with metastatic prostate cancer to multiple sites, now including the lung. PROBLEM LIST: 1. Prostate cancer with metastasis. 2. Acute Kidney Injury. 3. Atrial Fibrillation. 4. Patient DNR/DNI 5. Hypokalemia. Resolved PLAN: I have spoken with physical therapy, and they have agreed to come see him later today. Because he does have some subjective worsening shortness of breath, a portable upright chest x-ray was performed and demonstrated a very minimal thickening in the minor fissure which is suspicious for a small recurrent pleural effusion. Clearly this pleural effusion is very slow in its accumulation , and there is insufficient fluid to attempt a thoracentesis or place a Pleurx catheter. Also, his suprapubic catheter was exchanged today as it has been approximately 1 month since his previous exchange. Otherwise, he is ready for discharge whenever arrangements are finalized with hospice. VS, I&O, 24H, Fishbone VS, I&O, 24H, Fishbone Vital Signs Date Time Temp Pulse Resp B/P Pulse Ox O2 Delivery O2 Flow Rate FiO2 07/25/16 06:00 68 102/58 07/24/16 20:15 Room Air 07/21/16 14:00 96.3 20 97 2.0 I&O- Last 24 Hours up to 6 AM 07/25/16 06:00 Intake Total 720 ml Output Total 950 ml Balance -230 ml Microbiology 07/17/16 Blood Culture - Final, Complete NO GROWTH AFTER 5 DAYS 07/17/16 Blood Culture - Final, Complete NO GROWTH AFTER 5 DAYS 07/18/16 Acid Fast Stain - Final, Resulted 07/18/16 Mycobacterial Culture, Resulted Pending 07/18/16 Fungal Smear - Final, Resulted 07/18/16 Fungal Culture, Resulted Pending 07/18/16 Gram Stain - Final, Complete 07/18/16 Anaerobic Culture - Final, Complete 07/18/16 Body Fluid Culture - Final, Complete MELISSA OSPINA DO Jul 25, 2016 10:22
[2016-07-25] MEDS: oxyBUTYnin *DITROPAN XL* 5 MG TABCR PO SCH (20:00)
[2016-07-26] MEDS: METOPROLOL TART 25 MG TABLET PO SCH ×2 (00:03→05:15)
[2016-07-26 05:15] VITALS: BP 107/61
[2016-07-26] MEDS ORDERED: MORP1SOL PO (10:28)
[2016-07-26] MEDS ORDERED: LORA1TAB12 PO (10:28)
[2016-07-26] MEDS ORDERED: ATRO1OPD PO (10:28)
[2016-07-26] MEDS: K-PHOS ORIGINAL (POT.ACID PHOSPHATE) 500MG TAB PO SCH (12:31)
--- NOTE | 2016-07-26 19:52 | DS.PDOC ---
Discharge Summary General Date of Admission Jul 12, 2016 at 22:38 Date of Discharge Jul 26, 2016 at 12:51 Discharge Summary PRIMARY CARE PHYSICIAN: Dalton Saez MD ATTENDING AT TIME OF DISCHARGE: Dr. Barbi Rodrigues DO DISCHARGE DIAGNOS(E)S: 1. Prostate cancer with metastasis to multiple sites including long 2. Acute kidney injury, resolved 3. Atrial fibrillation 4. Electrolyte abnormalities, resolved 5. GERD 6. Hypertension 7. Chronic indwelling suprapubic catheter HPI & HOSPITAL COURSE: Mr. Mata came to [facility] as a transfer from [facility] for respiratory distress. He had been having worsening shortness of breath as well as fever and chills and cough for multiple days prior to admission. It was felt that he had aspiration pneumonia, therefore he was started on empiric broad-spectrum antibiotics. He did have a swallowing evaluation which he passed. He was also found to have a right-sided pleural effusion, and what appeared to be a new mass on chest CT imaging. A thoracentesis was performed and it was confirmed that he had abundant malignant cells consistent with metastatic carcinoma of prostate origin. The case was discussed with his oncologist, and he and his decided not to pursue any further treatments, but wished to go home with hospice. Therefore, his wishes were honored, and he is being discharged at this time under their care. PHYSICAL EXAMINATION ON DISCHARGE: VITAL SIGNS: Pulse 58, blood pressure 107/61 GENERAL: Awake, alert, oriented 3. He is resting in bed, appears to be in no distress. He is his usual pleasant self. Otherwise, physical examination was not performed as this would not influence the course of his care. DISPOSITION: Home with hospice DISCHARGE INSTRUCTIONS: Follow-up with hospice care doctor, mechanical soft diet, activity with assist. My preceptor for this patient encounter was physically present in the building during the encounter and was fully available. As needed, all aspects of the patient interview, examination, medical decision making process, and medical care plan development were reviewed and approved by the preceptor. Preceptor is aware and concurs with the plan as stated in the body of this note and will attest to such by his/her cosignature. Medications Scheduled Omeprazole (Omeprazole) 40 Mg Cap 40 MG PO DAILY DINNERTIME Oxybutynin Chloride (Oxybutynin Chloride ER) 10 Mg Tab 10 MG PO QHS Scheduled PRN Atropine Sulfate (Atropine Sulfate) 1 % Juanis 1-2 DROP PO Q2H PRN PRN TERMINAL SECRETIONS Use sublingually if unable to swallow MDD = 36 drops Lorazepam (Lorazepam) 1 Mg Tab 0.5 TAB PO Q4H PRN PRN ANXIETY/AGITATION Use sublingually if unable to swallow MDD = 3 mg Morphine Sulfate (Morphine Sulfate Concentrate) 10 Mg/0.5 Ml Conc 0.25-1 ML PO Q2H PRN PRN PAIN OR DYSPNEA Use sublingually if unable to swallow MDD = 12 ml Allergies Coded Allergies: No Known Allergies (Verified , 09/12/12) MELISSA OSPINA DO Jul 26, 2016 19:52
== END 2016-07-26 12:51 | disposition hospice, home (50) | DRG 723 ==
LOC: M ED 20:50 → M ED INP 22:38 → M PCU 07-13 00:19 → M MSPAV 07-16 16:29
PROVIDERS: ADMIT Internal Medicine; ATTEND Internal Medicine
PROC: 0W993ZZ Drainage of Right Pleural Cavity, Percutaneous Approach (ICD-10-PCS; principal; 2016-07-18)
DX: C61 Malignant neoplasm of prostate (principal); E87.1 Hypo-osmolality and hyponatremia; N17.9 Acute kidney failure, unspecified; C79.51 Secondary malignant neoplasm of bone; E87.0 Hyperosmolality and hypernatremia; C78.00 Secondary malignant neoplasm of unspecified lung; J91.0 Malignant pleural effusion; K21.9 Gastro-esophageal reflux disease without esophagitis; Z66 Do not resuscitate; I10 Essential (primary) hypertension; I48.91 Unspecified atrial fibrillation; Z79.899 Other long term (current) drug therapy; E87.6 Hypokalemia; E83.51 Hypocalcemia

== ENCOUNTER 2016-09-05 23:27 | Emergency (ER) | payer MEDICARE, OTHER ==
[~2016-09-05] VITALS: Ht 182.9 cm; Wt 72.6 kg
[~2016-09-05 23:27] MED LIST changes: +ATRO1OPD PO; +LORA1TAB12 PO; +LUPR45IN IM; +MORP1SOL PO; +POTA50TAB PO; +PRED5TA PO; +ZYTI250T PO
[2016-09-06 01:07] VITALS: BP 141/69
== END 2016-09-06 01:25 | disposition home or self-care (01) ==
LOC: EDBD 23:27 → M ED 09-06 00:48
DX: T83.018A Breakdown (mechanical) of other urinary catheter, initial encounter (principal); C61 Malignant neoplasm of prostate